=== PATIENT | female | born 1960 | race Caucasian/White ===

== ENCOUNTER → 2019-07-05 00:01 | Outpatient (RCR) | payer MEDICARE, SELFPAY | LOC: ONCMTN 06-07 05:49 → ONCRAD 06-08 06:04 | PROVIDERS: Family Provider Nurse Practitioner; Visit Provider Specialist | DX: Z51.0 Encounter for antineoplastic radiation therapy (principal); C50.411 Malignant neoplasm of upper-outer quadrant of right female breast; J45.909 Unspecified asthma, uncomplicated; Z79.51 Long term (current) use of inhaled steroids; Z79.82 Long term (current) use of aspirin | CPT/HCPCS: 77280 ×2; 77295; 77300; 77307; 77334 ×2; 77336 ×3; 77387 ×18; 77412 ×18 ==

== ENCOUNTER 2019-07-19 05:38 | Outpatient (RCR) | payer MEDICARE, SELFPAY ==
[2019-07-19 12:48] LABS: Basophils % 0.4 %; Eosinophils # 0.1 10^3/uL (0.0-0.8); Eosinophils % 0.9 %; Hematocrit 37.2 % (37.0-47.0); Hemoglobin 12.4 g/dL (11.5-15.3); Lymphocytes # 1.4 10^3/uL (0.8-4.8); Lymphocytes % 20.5 %; Mean Corpuscular HGB Conc 33.3 g/dL (30.0-36.0); Mean Corpuscular Volume 87.1 fL (81-99); Mean Platelet Volume 9.5 fL (7.4-10.4); Monocytes # 0.6 10^3/uL (0.2-0.9); Monocytes % 8.9 %; Neutrophils # 4.7 10^3/uL (1.8-7.7); Nucleated Red Blood Cells % 0 %; Platelet Count 220 10^3/cmm (130-400); Red Blood Count 4.27 10^6/uL (4.1-5.3); Red Cell Distribution Width 13.3 % (12.1-15.1); White Blood Count 6.7 10^3/uL (4.0-10.0)
[2019-07-19 13:04] LABS: Alanine Aminotransferase 21 U/L (0-33); Albumin Level 4.5 g/dL (3.5-5.2); Alkaline Phosphatase 114 IU/L (35-105); Anion Gap 22.5 (5-19); Aspartate Amino Transferase 19 U/L (0-32); Blood Urea Nitrogen 24 mg/dL (8-23); Calcium 9.8 mg/Dl (8.8-10.2); Carbon Dioxide 21 mmol/L (22-29); Chloride 98 mmol/L (98-107); Globulin 2.2 g/dL (1.3-4.6); Glomerular Filtration Rate 50.5 mL/min (90-130); Glucose 226 mg/dL (74-106); Potassium 4.5 mmol/L (3.5-5.1); Sodium 137 mmol/L (136-145); Total Bilirubin 0.2 mg/dL (0.15-1.2); Total Protein 6.7 g/dL (6.6-8.7)
--- NOTE | 2019-07-19 14:40 | ONC FU_ITS ---
Dr. Farias follow up note Patient: Harleen Pierre < Unit #: [id number]: 1960 Dicatated By: Adal Farias M.D.Date of Visit:Jul 19, 2019 Onc Med Follow-up/Prog Note History of Present Illness: Mrs. Harleen Pierre, is a 59-year-old female found to have right breast abnormality in her routine follow-up mammogram done on 02/16/2019 which showed 10 mm asymmetric density in the right upper quadrant of for right breast , subsequently on 03/29/2019 underwent ultrasound-guided right breast biopsy and it confirmed. Infiltrating ductal carcinoma ER 89% positive MN 90% positive HER-2/wisam negative Ki-67 6% favorable.Underwent right breast lumpectomy with sentinel lymph node dissection on 04/27/2019, final pathology report showed 1.1 cm invasive tumor, grade 2, with a clear margin pT1c and 0 out of 2 sentinel lymph node showed metastatic disease pN0. Oncotype DX reported on 05/16/2019 e.g. low recurrence score at 7, means absolute chemotherapy benefit is less than 1% and risk of distant recurrence at 9 years with aromatase inhibitor is about 3%. Patient was started on Arimidex 1 mg by mouth daily along with vitamin D/calcium supplement on 05/20/2019 Patient took it for few days but because of headaches and generalized muscular skeleton pain although patient has history of arthritis, patient decided to stop her Arimidex and on 07/16/2018 she was started on Aromasin 25 mg by mouth daily Comleted postlumpectomy radiation therapy on 07/01/2019 Patient denies any nipple discharge or retraction patient denies any right axillary lymphadenopathy patient denies any overlying skin changes. Patient denies any bony pains. Patient denies any weight loss next Family history positive for maternal aunt diagnosed with breast cancer at age 70 Came for follow-up, denies any specific complaints, generalized muscular skeleton pain is much better since off Arimidex still have off-and-on headaches which is a chronic problem. No fever or chills, no diarrhea constipation no blurred vision or double vision, no new bony pains. Patient has initial chronic arthritis. Medications: Advair Diskus 1 puff(s) (of 250-50 mcg/dose) Aerosol Powder, Breath Activated Inhalation daily PRN, Aspirin 1 Tablet (of 81 mg) Oral daily, Ciprofloxacin HCl 1 Tablet (of 500 mg) Oral b.i.d. for 3 days, Gabapentin 1 Capsule (of 300 mg) Oral b.i.d., Glimepiride 1 Tablet (of 2 mg) Oral daily, hydroCHLOROthiazide 1 Tablet (of 12.5 mg) Oral daily, Lisinopril 1 Tablet (of 40 mg) Oral daily, metFORMIN HCl 1 Tablet (of 1000 mg) Oral b.i.d., metroNIDAZOLE 1 Tablet (of 500 mg) Oral t.i.d., Omeprazole 1 Capsule (of 40 mg) Tablet, enteric coated Oral daily, Ondansetron HCl 1 Tablet (of 4 mg) Oral daily PRN, predniSONE 1 Tablet (of 20 mg) Oral daily, Ventolin HFA 1 puff(s) (of 108 (90 base) mcg/act) Aerosol, solution Inhalation PRN Allergies: CeleBREX, Ibuprofen, latex, and Vicodin. Review of Systems: Constitutional - Appetite is good and weight is stable. No fever, chills, hot flashes, or night sweats. Energy level is fair, ENMT - No sinus congestion/drainage. No mouth sores. No sore throat, positive for difficulty swallowing, Hematologic/Lymphatic - No abnormal bruising or bleeding, Respiratory - Occasional shortness of breath and cough. No pleuritic pain or hemoptysis, Cardiovascular - Slight angina pain and palpitations, Gastrointestinal - No nausea or vomiting. No heartburn. Positive for acid reflux. No diarrhea or constipation. No blood in the stool or black stools, Genitourinary (F) - No dysuria or hematuria. No urinary frequency. No urgency or incontinence, Musculoskeletal - Positive for arthritis, Neurologic - No headache or dizziness. Pt reports neuropathy in her feet, Psychiatric - Positive for anxiety, depression and insomnia. Vital Signs: Vitals are not available for this patient. Performance Status: 0 - Fully active, able to carry on all predisease activities without restrictions. (ECOG) Physical Examination: Respiratory - Lungs are clear to auscultation without rhonchi or wheezing, Cardiovascular - Regular rate and rhythm of heart, Extremities - no edema. Lab/Imaging: Test performed on Jul 19, 2019 12:33 Glucose 226 mg/dL BUN 24 mg/dL Creatinine 1.1 mg/dL Cr Clearance (Est) 68.99 mL/min Sodium 137 mmol/L Potassium 4.5 mmol/L Chloride 98 mmol/L CO2 21 mmol/L Calcium 9.8 mg/dL Protein, Total 6.7 g/dL Albumin 4.5 g/dL Globulin 2.2 g/dL Bilirubin, Total 0.2 mg/dL Alkaline Phosphatase 114 IU/L AST (SGOT) 19 IU/L ALT (SGPT) 21 IU/L WBC 6.7 10^9/L RBC 4.27 10^12/L HGB 12.4 g/dL HCT 37.2 % MCV 87.1 fl MCH 29.0 pg MCHC 33.3 g/dL RDW 13.3 % Platelet Count 220 10^9/L MPV 9.5 fL Neutrophils (Gran) 4.7 10^9/L Lymphocytes 1.4 10^9/L Monocytes 0.6 10^9/L Eosinophils 0.1 10^9/L Basophils 0.0 10^9/L Manual Lymphocytes 20.5 % Manual Monocytes 8.9 % Manual Eosinophils 0.9 % Manual Basophils 0.4 % NRBCs 0.0 /100 WBC Test performed on May 20, 2019 09:15 Anion Gap 18.4 eGFR 85.1 mL/min Neutrophil % 62.4 % Lymphocyte % 25.5 % Monocyte % 10.3 % Eosinophil % 0.6 % Basophils % 0.6 % Impression: Status post right lumpectomy with sentinel lymph node dissection done on 04/27/2019 Final pathology report showed 1.1 cm, grade 2, invasive tumor with clear margins pT1c, 0 out of 2 sentinel lymph node positive for metastatic disease pN0 Oncotype DX score low at 7, started on Arimidex 1 mg by mouth daily along with vitamin D/calcium supplement for 5 years on 05/20/2019 Patient discontinued Arimidex because of related side effects especially increase in muscle skeleton discomfort and on 07/16/2019, she was started on Aromasin 25 mg by mouth daily Completed postlumpectomy radiation therapy on 07/01/2019 Infiltrating ductal carcinoma of right breast per ultrasound-guided biopsy done on 03/29/2019 which showed ER 89%, MN 90%, HER-2/wisam negative, Ki-67 6% (favorable) Mammogram done on 02/16/2090 showed 10 mm asymmetric density upper outer right breast As per patient colonoscopy done in September 2018 showed no abnormality Plan: Discussed with patient regarding her labs white blood count 6.7 hemoglobin 12.4 crit 37.2 platelets 220,000 CMP within normal limit except glucose 226 Clinically, patient is doing well, muscular skeleton pain/discomfort is improving since off Arimidex., Now we will start her on Aromasin 25 mg by mouth daily all the side effect possible benefits associated with Aromasin were discussed patient expressed full understanding. We'll give her prescription for one month and then she will return to clinic in month if tolerated then will continue otherwise may try Femara. Signed By: Adal Farias M.D. <<Signature on File>>
== END 2019-08-05 23:59 | disposition home or self-care (01) ==
LOC: ONCRAD 05:38
PROVIDERS: Visit Provider Internal Medicine Hematology & Oncology
DX: Z51.0 Encounter for antineoplastic radiation therapy (principal); C50.411 Malignant neoplasm of upper-outer quadrant of right female breast; Z17.0 Estrogen receptor positive status [ER+]; G62.9 Polyneuropathy, unspecified; M19.90 Unspecified osteoarthritis, unspecified site; F41.8 Other specified anxiety disorders; G47.00 Insomnia, unspecified; Z79.811 Long term (current) use of aromatase inhibitors; Z79.51 Long term (current) use of inhaled steroids; Z79.82 Long term (current) use of aspirin; Z80.3 Family history of malignant neoplasm of breast
CPT/HCPCS: 36415; 77336; 77387; 77412; 80053; 85025; 99214; G6002

== ENCOUNTER 2019-08-30 13:34 | Outpatient (CLI) | payer MEDICARE, SELFPAY ==
--- NOTE | 2019-08-30 13:44 | CT_ITS ---
WS: [id number] CT PELVIS WITH HISTORY: LEIOMYOMA OF UTERUS, LOWER ABDOMINAL PAIN TECHNIQUE: Contiguous imaging is performed of the pelvis without contrast. Coronal and sagittal refor mats are reviewed. All CT scans at [facility] use at least one of these dose optimization techniques: automated exposure control; mA and/or kV adjustment per patient size (includes targeted exams where dose is matched to clinical indication); or iterative reconstruction. DLP: 802.38 mGycm COMPARISON: None available. Visualized inferior RIGHT lobe of the liver demonstrates hepatic steatosis. Incompletely visualized c yst in the lower pole of the RIGHT kidney measures 1.3 cm. No adrenal mass. Mild atherosclerosis aort a. A few diverticula in the sigmoid colon. No free fluid or adenopathy. Urinary bladder is not distended. The uterus is anteverted and slightly to the LEFT. Mild heterogenei ty of the myometrium. No discrete fibroids are identified but that is not unexpected by CT evaluation . Atrophic ovaries are identified. Degenerative disc disease with vacuum disc phenomenon at L4-5. CT/CT pelvis w con* [id number] IMPRESSION: 1. No acute abnormality in the pelvis. 2. Uterus is slightly enlarged but no discrete fibroids are identified. For ev aluation of fibroids transvaginal ultrasound can be obtained. 3. No adenopathy or free fluid.
[2019-08-30] MEDS: iohexol 300 mg/mL 50 mL Btl PO (15:02)
[2019-08-30] MEDS: iodixanol 320 mg/mL 100mL Btl IV (15:17)
== END 2019-08-30 13:35 | disposition home or self-care (01) ==
LOC: RADWPI 13:41
PROVIDERS: Family Provider Nurse Practitioner; PCP Nurse Practitioner; Visit Provider Physician Assistant Medical
DX: D25.9 Leiomyoma of uterus, unspecified (principal); R10.30 Lower abdominal pain, unspecified
CPT/HCPCS: 72193; Q9967

== ENCOUNTER 2019-09-01 05:56 | Outpatient (RCR) | payer MEDICARE, MEDICAID, SELFPAY ==
--- NOTE | 2019-09-01 09:34 | ONC FU_ITS ---
Dr. Farias follow up note Patient: Harleen Pierre < Unit #: [id number]: 1960 Dicatated By: Adal Farias M.D.Date of Visit:Sep 01, 2019 Onc Med Follow-up/Prog Note History of Present Illness: Mrs. Harleen Pierre, is a 59-year-old female found to have right breast abnormality in her routine follow-up mammogram done on 02/16/2019 which showed 10 mm asymmetric density in the right upper quadrant of for right breast , subsequently on 03/29/2019 underwent ultrasound-guided right breast biopsy and it confirmed. Infiltrating ductal carcinoma ER 89% positive ND 90% positive HER-2/wisam negative Ki-67 6% favorable.Underwent right breast lumpectomy with sentinel lymph node dissection on 04/27/2019, final pathology report showed 1.1 cm invasive tumor, grade 2, with a clear margin pT1c and 0 out of 2 sentinel lymph node showed metastatic disease pN0. Oncotype DX reported on 05/16/2019 e.g. low recurrence score at 7, means absolute chemotherapy benefit is less than 1% and risk of distant recurrence at 9 years with aromatase inhibitor is about 3%. Patient was started on Arimidex 1 mg by mouth daily along with vitamin D/calcium supplement on 05/20/2019 Patient took it for few days but because of headaches and generalized muscular skeleton pain although patient has history of arthritis, patient decided to stop her Arimidex and on 07/16/2018 she was started on Aromasin 25 mg by mouth daily Comleted postlumpectomy radiation therapy on 07/01/2019 Patient denies any nipple discharge or retraction patient denies any right axillary lymphadenopathy patient denies any overlying skin changes. Patient denies any bony pains. Patient denies any weight loss next Family history positive for maternal aunt diagnosed with breast cancer at age 70 Came for follow-up, denies any specific complaints today no more worsening of muscular skeleton discomfort she has due to arthritis, tolerating Aromasin well Medications: Advair Diskus 1 puff(s) (of 250-50 mcg/dose) Aerosol Powder, Breath Activated Inhalation daily PRN, Aspirin 1 Tablet (of 81 mg) Oral daily, Gabapentin 1 Capsule (of 300 mg) Oral b.i.d., Glimepiride 1 Tablet (of 2 mg) Oral daily, hydroCHLOROthiazide 1 Tablet (of 12.5 mg) Oral daily, Lisinopril 1 Tablet (of 40 mg) Oral daily, metFORMIN HCl 1 Tablet (of 1000 mg) Oral b.i.d., Omeprazole 1 Capsule (of 40 mg) Tablet, enteric coated Oral daily, Ventolin HFA 1 puff(s) (of 108 (90 base) mcg/act) Aerosol, solution Inhalation PRN Allergies: CeleBREX, Ibuprofen, latex, and Vicodin. Review of Systems: Constitutional - Appetite is good and weight is stable. No fever, chills, hot flashes, or night sweats. Energy level is fair, ENMT - No sinus congestion/drainage. No mouth sores. No sore throat, positive for difficulty swallowing, Hematologic/Lymphatic - No abnormal bruising or bleeding, Respiratory - Occasional shortness of breath and cough. No pleuritic pain or hemoptysis, Cardiovascular - Slight angina pain and palpitations, Gastrointestinal - No nausea or vomiting. No heartburn. Positive for acid reflux. No diarrhea or constipation. No blood in the stool or black stools, Genitourinary (F) - No dysuria or hematuria. No urinary frequency. No urgency or incontinence, Musculoskeletal - Positive for arthritis, Neurologic - No headache or dizziness. Pt reports neuropathy in her feet, Psychiatric - Positive for anxiety, depression and insomnia. Vital Signs: Performed on Sep 01, 2019 09:19 Height - 66.00 in Weight - 180.6 lbs Temperature - 97.4 F Pulse - 86 Respiration - 20 BP - 126/77 mm(hg) O2 Sat - 97 % Pain - 0 Performed on Sep 01, 2019 09:19 BMI - 29.15 kg/m2 (HIGH) Performed on Sep 01, 2019 08:46 Height - 66.00 in Weight - 180.6 lbs (HIGH) BSA - 1.92 sq.m BMI - 29.15 Temperature - 97.4 F (LOW) Pulse - 86 /min Respiration - 20 /min BP - 126/77 mm(hg) O2 Sat - 97 % Pain - 0 Performance Status: 0 - Fully active, able to carry on all predisease activities without restrictions. (ECOG) Physical Examination: Respiratory - Lungs are clear to auscultation without rhonchi or wheezing, Cardiovascular - Regular rate and rhythm of heart, Extremities - no edema. Lab/Imaging: Test performed on Jul 19, 2019 12:33 Glucose 226 mg/dL BUN 24 mg/dL Creatinine 1.1 mg/dL Cr Clearance (Est) 68.99 mL/min Sodium 137 mmol/L Potassium 4.5 mmol/L Chloride 98 mmol/L CO2 21 mmol/L Calcium 9.8 mg/dL Protein, Total 6.7 g/dL Albumin 4.5 g/dL Globulin 2.2 g/dL Bilirubin, Total 0.2 mg/dL Alkaline Phosphatase 114 IU/L AST (SGOT) 19 IU/L ALT (SGPT) 21 IU/L WBC 6.7 10 3/uL RBC 4.27 10^12/L HGB 12.4 g/dL HCT 37.2 % MCV 87.1 fL MCH 29.0 pg MCHC 33.3 g/dL Platelet Count 220 10^9/L RDW 13.3 % MPV 9.5 fL Lymphocytes 1.4 10^9/L Neutrophils 0.0 10 3/uL Monocytes 0.6 10^9/L Eosinophils 0.1 10^9/L Basophils 0.0 10^9/L Neutrophil % 0.9 % Manual Lymphocytes 20.5 % Manual Monocytes 8.9 % Manual Eosinophils 0.9 % Manual Basophils 0.4 % NRBCs 0.0 /100 WBC Test performed on May 20, 2019 09:15 Anion Gap 18.4 eGFR 85.1 mL/min Lymphocyte % 25.5 % Monocyte % 10.3 % Eosinophil % 0.6 % Basophils % 0.6 % Impression: Status post right lumpectomy with sentinel lymph node dissection done on 04/27/2019 Final pathology report showed 1.1 cm, grade 2, invasive tumor with clear margins pT1c, 0 out of 2 sentinel lymph node positive for metastatic disease pN0 Oncotype DX score low at 7, started on Arimidex 1 mg by mouth daily along with vitamin D/calcium supplement for 5 years on 05/20/2019 Patient discontinued Arimidex because of related side effects especially increase in muscle skeleton discomfort and on 07/16/2019, she was started on Aromasin 25 mg by mouth daily Completed postlumpectomy radiation therapy on 07/01/2019 Infiltrating ductal carcinoma of right breast per ultrasound-guided biopsy done on 03/29/2019 which showed ER 89%, ND 90%, HER-2/wisam negative, Ki-67 6% (favorable) Mammogram done on 02/16/2090 showed 10 mm asymmetric density upper outer right breast As per patient colonoscopy done in September 2018 showed no abnormality Plan: Discussed with patient regarding her questions or concern, now on Aromasin, tolerating well except occasionally hot flashes but no worsening of muscle skeleton discomfort due to arthritis. So we'll continue with same and she was given prescription for Aromasin 25 mg by mouth daily along with vitamin D and calcium supplement and return to clinic in 3 months with CBC CMP. Signed By: Adal Farias M.D. <<Signature on File>>
--- NOTE | 2019-09-01 09:41 | ONCRAD EPV_ITS ---
Radiation Oncology Established Patient Visit Patient: Jose MR#: [id number] : 1960> Age: 59> Sex: Female> Dictated by: Dr. Nitish Watson Date of Service: 09/01/2019 Referring Physician(s): Edy Lorenzana MD Diagnosis: Z17.0 - Estrogen receptor positive status [ER+], Diagnosed 07/19/2019 (Active) C50.411 - Malignant neoplasm of upper-outer quadrant of right female breast, Diagnosed 04/20/2019 (Active) Chief Complaint / History of Present Illness: This is a 59-year-old female with pT1b, pN0, M0 invasive ductal carcinoma involving the right breast status post right breast lumpectomy and sentinel lymph nodes dissection. Surgical margins are widely negative. Subsequently, she received adjuvant right whole breast irradiation to 42.5 Gy in 16 fractions followed by a boost of 10 Gy in 5 fractions to the tumor bed. The patient has recovered from radiation well. She notes occasional right breast pain but denies skin irritation or erythema. The skin reaction has resolved essentially. Current Medications: Advair Diskus, aspirin, exemestane, gabapentin, glimepiride, hydroCHLOROthiazide, lisinopril, metFORMIN HCl, omeprazole, ventolin HFA. Allergies: CeleBREX, Ibuprofen, latex and Vicodin. Current Complaints / Review of Systems: Constitutional - Complains of moderate fatigue. Complains of night sweats which occur occasionally. Denies lack of appetite and fever. Eyes - Denies blurred vision. ENMT - Complains of ear pain on the right side. Denies dysphagia, mouth dryness, stomatitis and altered taste. Neck - Denies neck pain. Integumentary - Denies rash. Breasts - Complains of pain in the right breast which is a sharp shooting pain and it comes and goes. Cardiovascular - Denies arrhythmias and chest pain. Respiratory - Complains of dyspnea with excertion and wheezing occasionally. Denies cough. Gastrointestinal - Complains of abdominal pain that is intermittent located in left lower quadrant. Complains of occasional diarrhea. Complains of heartburn / dyspepsia. Denies constipation, melena / GI bleeding, nausea and vomiting. Genitourinary (F) - Complains of nocturia more than 4 times/night. Denies dysuria, frequency, urgency, vaginal discharge / bleeding and vaginal spotting. Musculoskeletal - Complains of arthritis and joint pain. Denies bone pain. Neurologic - Denies dizziness, abnormal gait and headaches. Endocrine - Complains of Type 2 diabetes. Denies thyroid disease. Hematologic/Lymphatic - Denies tender or enlarged lymph nodes. Vital Signs: Performed on 09/01/2019 8:46 AM Height - 66.00 in, Weight - 180.6 lbs (high), BSA - 1.92 sq.m, BMI - 29.15, Temperature - 97.4 f (low), Pulse - 86 /min, Respiration - 20 /min, O2 Sat - 97 %, Pain - 0 and BP - 126/ 77 mm(hg). Physical Exam: General: Alert and oriented x 3. No acute distress. HEENT: Normocephalic, atraumatic. Extraocular Movements Intact: Pupils Equal, Round, Reactive to Light and Accommodation: Sclerae anicteric. Oral cavity is clear without lesions, masses or ulcers. NECK: Supple without supraclavicular or jugular lymphadenopathy. LUNGS: Clear to auscultation bilaterally without rales, rhonchi or wheeze. HEART: Regular rate and rhythm, normal S1 and S2 without murmur, gallop or rub. BREASTS: There is no mass/nodule palpated of the right breast. No skin change, nipple discharge or retraction. The surgical incision has healed up well with no signs of bleeding or infection. No enlarged lymph nodes in the axilla. Exam of the contralateral breast is unremarkable. MUSCULOSKELETAL: No tenderness or percussion pain over the axial skeleton, scapulae or pelvis. ABDOMEN: Soft, nontender, nondistended without masses or organomegaly. Bowel sounds are present. EXTREMITIES: No peripheral edema is identified. Limited motor and sensory examination are grossly intact and symmetric bilaterally. NEUROLOGIC: Cranial nerves II ???XII are grossly intact. Normal sensation, strength 5/5 in all extremities, normal gait, no ataxia. Performance Status: 0 - Fully active, able to carry on all predisease activities without restrictions. (ECOG) Lab: Test performed on 07/19/2019 12:33 PM Cr Clearance (Est) - 68.99 ml/min (low). Pathology: invasive ductal carcinoma Imaging: See HPI Impression/plan: The patient has recovered well from RT. She will undergo breast cancer surveillance which includes self-exam of bilateral breasts, axillar and supra/infraclavicular lymphatic regions, annual mammogram and regular followup with her physicians. She will follow up with me on an as needed basis. Signed by: 09/01/2019 9:39:49 AM <<Signature on File>> CPT Code: CPT Code: Signed By: Dr. Nitish Watson, 09/01/2019 9:39:50 AM <<Signature on File>>
== END 2019-09-03 23:59 | disposition home or self-care (01) ==
LOC: ONCMED 05:56
PROVIDERS: Absent Provider Radiology Radiation Oncology; Family Provider Nurse Practitioner; PCP Nurse Practitioner; Visit Provider Internal Medicine Hematology & Oncology
DX: C50.411 Malignant neoplasm of upper-outer quadrant of right female breast (principal); Z17.0 Estrogen receptor positive status [ER+]; Z79.811 Long term (current) use of aromatase inhibitors; Z79.82 Long term (current) use of aspirin; Z92.3 Personal history of irradiation; Z80.3 Family history of malignant neoplasm of breast
CPT/HCPCS: 99214

== ENCOUNTER 2019-11-07 07:55 | Outpatient (CLI) | payer MEDICARE, SELFPAY ==
--- NOTE | 2019-11-07 08:36 | ECG_ITS ---
No Symptoms Reported EXERCISE TREADMILL STRESS ORDERING PHYSICIAN: Unknown CLINICAL INFORMATION: Unknown INTERPRETATION: 1. The patient exercised for 4 minutes and 40 seconds on a Amilcar protocol. He reached a maximum heart rate of 173 beats per minute, which is 108 % of her maximum predicted heart rate. The test was stopped due to achieving the desired heart rate. 2. The baseline electrocardiogram reveals sinus rhythm with nonspecific ST changes but otherwise a normal tracing. 3. With exercise, there was 3 to [address] segment depression in multiple leads very suggestive of ischemia. 4. The resting blood pressure was 136/70. The maximum blood pressure was 241/93. 5. At maximum exercise, the patient achieved 7 METs with a rate pressure product of 415. 6. The patient experienced no chest pain during the examination. Occasional multiform PVCs developed during recovery. CONCLUSION: 1. Exercise treadmill test very suggestive of ischemia. 2. Below average exercise capacity for age. 3. Hypertensive blood pressure response to exercise. 4. If ischemia is suspected, I would recommend a treadmill sestamibi or Lexiscan sestamibi for better risk stratification. Electronically Signed On 11-08-2019 16:12:06 CDT by Manjinder Zambrano M.D. [email or web address]
[2019-11-07 08:40] VITALS: BMI 28.2
[2019-11-07 10:34] VITALS: BP 145/70; PULSE 97
== END 2019-11-07 07:56 | disposition home or self-care (01) ==
LOC: CDL 08:00
PROVIDERS: Family Provider Nurse Practitioner; PCP Nurse Practitioner; Visit Provider Nurse Practitioner
DX: R07.9 Chest pain, unspecified (principal)
CPT/HCPCS: 93017

== ENCOUNTER 2020-02-09 07:53 | Outpatient (CLI) | payer MEDICARE, SELFPAY ==
[2020-02-09 08:24] LABS: Basophils % 0.6 %; Eosinophils # 0.1 10^3/uL (0.0-0.8); Eosinophils % 1.6 %; Hematocrit 39.8 % (37.0-47.0); Hemoglobin 12.7 g/dL (11.5-15.3); Lymphocytes # 1.1 10^3/uL (0.8-4.8); Mean Corpuscular HGB Conc 31.9 g/dL (30.0-36.0); Mean Corpuscular Hemoglobin 30.6 pg (28.0-34.0); Mean Corpuscular Volume 95.9 fL (81-99); Monocytes # 0.3 10^3/uL (0.2-0.9); Monocytes % 6.5 %; Neutrophils # 3.32 10^3/uL (1.8-7.7); Neutrophils % 67.5 %; Nucleated Red Blood Cells % 0 %; Platelet Count 220 10^3/cmm (130-400); Red Blood Count 4.15 10^6/uL (4.1-5.3); Red Cell Distribution Width 12.7 % (12.1-15.1); White Blood Count 4.9 10^3/uL (4.0-10.0)
[2020-02-09 08:42] LABS: Alanine Aminotransferase 23 U/L (0-33); Albumin Level 4.1 g/dL (3.5-5.2); Alkaline Phosphatase 107 IU/L (35-105); Aspartate Amino Transferase 16 U/L (0-32); Blood Urea Nitrogen 12 mg/dL (8-23); Calcium 8.5 mg/dL (8.5-10.5); Carbon Dioxide 22 mmol/L (22-29); Chloride 106 mmol/L (98-107); Glomerular Filtration Rate 72.7 mL/min (90-130); Glucose 201 mg/dL (65-115); Osmolality Calculated 290 mOsm/kg (285-295); Sodium 139 mmol/L (136-145); Total Bilirubin 0.4 mg/dL (0.15-1.2); Total Protein 7.1 g/dL (6.6-8.7)
--- NOTE | 2020-02-09 11:13 | ONC FU_ITS ---
Dr. Farias follow up note Patient: Harleen Pierre Unit #: [id number]: 1960 Dicatated By: Adal Farias M.D.Date of Visit:Feb 09, 2020 Onc Med Follow-up/Prog Note History of Present Illness: Mrs. Harleen Pierre, is a 60-year-old female found to have right breast abnormality in her routine follow-up mammogram done on 02/16/2019 which showed 10 mm asymmetric density in the right upper quadrant of for right breast , subsequently on 03/29/2019 underwent ultrasound-guided right breast biopsy and it confirmed. Infiltrating ductal carcinoma ER 89% positive MN 90% positive HER-2/wisam negative Ki-67 6% favorable.Underwent right breast lumpectomy with sentinel lymph node dissection on 04/27/2019, final pathology report showed 1.1 cm invasive tumor, grade 2, with a clear margin pT1c and 0 out of 2 sentinel lymph node showed metastatic disease pN0. Oncotype DX reported on 05/16/2019 e.g. low recurrence score at 7, means absolute chemotherapy benefit is less than 1% and risk of distant recurrence at 9 years with aromatase inhibitor is about 3%. Patient was started on Arimidex 1 mg by mouth daily along with vitamin D/calcium supplement on 05/20/2019 Patient took it for few days but because of headaches and generalized muscular skeleton pain although patient has history of arthritis, patient decided to stop her Arimidex and on 07/16/2018 she was started on Aromasin 25 mg by mouth daily Comleted postlumpectomy radiation therapy on 07/01/2019 Patient denies any nipple discharge or retraction patient denies any right axillary lymphadenopathy patient denies any overlying skin changes. Patient denies any bony pains. Patient denies any weight loss next Family history positive for maternal aunt diagnosed with breast cancer at age 70 Came for follow-up, denies any specific complaints except mild discomfort in her breast but no mass palpable no nipple discharge no overlying skin changes. 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 Other than that no new musculoskeletal pain occasionally hot flashes no fever chills no nausea or vomiting no diarrhea constipation tolerating Aromasin well Medications: Advair Diskus 1 puff(s) (of 250-50 mcg/dose) Aerosol Powder, Breath Activated Inhalation daily PRN, Aspirin 1 Tablet (of 81 mg) Oral daily, Gabapentin 1 Capsule (of 300 mg) Oral b.i.d., Glimepiride 1 Tablet (of 2 mg) Oral daily, hydroCHLOROthiazide 1 Tablet (of 12.5 mg) Oral daily, Lisinopril 1 Tablet (of 40 mg) Oral daily, metFORMIN HCl 1 Tablet (of 1000 mg) Oral b.i.d., Omeprazole 1 Capsule (of 40 mg) Tablet, enteric coated Oral daily, Ventolin HFA 1 puff(s) (of 108 (90 base) mcg/act) Aerosol, solution Inhalation PRN Allergies: CeleBREX, Ibuprofen, latex, and Vicodin. Review of Systems: Review of Systems is not available for this patient. Vital Signs: Performed on Feb 09, 2020 10:37 Height - 66.00 in Weight - 180.4 lbs (LOW) BSA - 1.91 sq.m BMI - 29.12 Temperature - 97.7 F (LOW) Pulse - 71 /min Respiration - 18 /min BP - 177/84 mm(hg) (HIGH) O2 Sat - 98 % Pain - 0 Performance Status: 0 - Fully active, able to carry on all predisease activities without restrictions. (ECOG) Physical Examination: Respiratory - Lungs are clear, Cardiovascular - Regular rate and rhythm of heart, Gastrointestinal - Soft, bowel sounds present, Extremities - No visible edema or rash. Lab/Imaging: Most recent lab results are not available for this patient. Impression: Status post right lumpectomy with sentinel lymph node dissection done on 04/27/2019 Final pathology report showed 1.1 cm, grade 2, invasive tumor with clear margins pT1c, 0 out of 2 sentinel lymph node positive for metastatic disease pN0 Oncotype DX score low at 7, started on Arimidex 1 mg by mouth daily along with vitamin D/calcium supplement for 5 years on 05/20/2019 Patient discontinued Arimidex because of related side effects especially increase in muscle skeleton discomfort and on 07/16/2019, she was started on Aromasin 25 mg by mouth daily Completed postlumpectomy radiation therapy on 07/01/2019 Infiltrating ductal carcinoma of right breast per ultrasound-guided biopsy done on 03/29/2019 which showed ER 89%, MN 90%, HER-2/wisam negative, Ki-67 6% (favorable) Mammogram done on 02/16/2090 showed 10 mm asymmetric density upper outer right breast As per patient colonoscopy done in September 2018 showed no abnormality Plan: Discussed with patient regarding her labs white blood count 4.9 hemoglobin 12.7 hematocrit 39.8 platelets 220 CMP within normal range Clinically, patient is doing well, with no signs symptom suggestive of recurrence of disease, tolerating Aromasin well but with expected side effects e.g. occasional hot flashes. Mild anemia, now resolved, and mild renal insufficiency is improved too. We will continue with same and then she will return to clinic in 4 months with CBC CMP and mammogram and also obtain uterine biopsy reports and review. Signed By: Adal Farias M.D. <<Signature on File>>
== END 2020-02-09 07:54 | disposition home or self-care (01) ==
PROVIDERS: Visit Provider Internal Medicine Hematology & Oncology
DX: C50.411 Malignant neoplasm of upper-outer quadrant of right female breast (principal); Z17.0 Estrogen receptor positive status [ER+]; Z79.818 Long term (current) use of other agents affecting estrogen receptors and estrogen levels
CPT/HCPCS: 36415; 80053; 85025; 99214

== ENCOUNTER 2020-02-15 07:31 | Outpatient (CLI) | payer MEDICARE, MEDICAID, SELFPAY ==
--- NOTE | 2020-02-15 08:17 | ECG_ITS ---
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 Interpretive Statements NAME OF STUDY: EXERCISE SESTAMIBI STRESS TEST INDICATION: Chest Pain, PROCEDURE: The baseline electrocardiogram showed normal sinus rhythm with normal ST-Ts. At the baseline, the patient's blood pressure was 163/95 mm Hg with a heart rate of 93. The patient exercised for 4 minutes and 17 seconds on a standard Amilcar protocol. Patient attained a maximum heart rate of 152 beats per minute(96 % of the maximum predicted heart rate) with a blood pressure at the peak exercise of 243/85 mm Hg. The EKG at the peak exercise revealed 1-1.[address] depressions in leads II, 3, aVF, V4 to V6.. Patient did not have any chest pain or any significant arrhythmis with the exercise Sestamibi was injected 1 minute prior to the peak exercise During the recovery phase, there were no new changes. Blood pressure at the end of the recovery phase was 161/97 mm Hg with a heart rate of 92 per minute. CONCLUSION: 1. Abnormal EKG response to treadmill exercise suggestive of inferolateral wall ischemia 2. No exercise-induced chest pain or cardiac arrhythmia. Hypertensive response to exercise 3. Impaired exercise tolerance, attained a maximum of 7.2 METs 4. Sestamibi/Sestamibi perfusion results pending; see separate report. Electronically Signed On 02-21-2020 9:46:02 CDT by Paul Stacy M.D. [id number]
--- NOTE | 2020-02-15 08:17 | NMCV_ITS ---
NM jarred perf SPECT r/s* [id number] [facility] Age: 60 Gender: F : 1960 Exam Date: 02/15/2020 08:17 Ordering Phys: Paul Stacy MD ([email or web address]) Technologist: LILY Bello Exam Location: [facility] Indications: CHEST PAIN STRESS TEST Please see separate stress test report in [facility] for full findings IMAGE PROTOCOL Rest/Stress 1 Exercise Day Radiopharmaceutical Dose (mCi) Administration Site Administered by Rest: Tc-99m 10.7 IV LILY Bello Sestamibi Stress:Tc-99m 32.8 IV LILY Cueva Sestamibi Rest: 15-Feb-2020 60 Discovery 630 Stress: 15-Feb-2020 30 Discovery 630 Radiopharmaceutical was injected at 88 % maximum heart rate. Images obtained in supine and prone position. SPECT RESULTS Technical Quality: Excellent Raw Data Analysis: Normal Image Corrections: No attenuation or motion correction applied Summed Stress Score: 0 Summed Rest Score: 8 Summed Difference Score: 0 PERFUSION FINDINGS Fairly uniform myocardial tracer uptake with no significant perfusion abnormalities. FUNCTIONAL RESULTS (calculated via Gated SPECT) Stress Image LV EF (%): 65 Stress EDV (mL):94 TID: 1.04 Stress ESV (mL):33 FUNCTIONAL FINDINGS: Segmental wall motion analysis revealing no gross wall motion abnormalities. IMPRESSIONS 1. Unremarkable myocardial perfusion imaging. 2. Normal LV ejection fraction of 65%. 3. LV wall motion analysis revealing no gross wall motion abnormalities. 4. Normal LV volume. No significant coronary ischemia, based on the above findings Dr Paul Stacy MD FAC (Electronically Signed) Final Date: 15 February 2020 17:19 S
[2020-02-15 08:18] VITALS: BMI 29.9
== END 2020-02-15 07:32 | disposition home or self-care (01) ==
LOC: RAD 07:34
PROVIDERS: Visit Provider Internal Medicine Cardiovascular Disease
DX: R07.9 Chest pain, unspecified (principal); R06.02 Shortness of breath; R94.31 Abnormal electrocardiogram [ECG] [EKG]
CPT/HCPCS: 78452; 93017; A9500

== ENCOUNTER 2020-02-16 13:24 | Outpatient (CLI) | payer MEDICARE, SELFPAY ==
--- NOTE | 2020-02-16 13:32 | MM_ITS ---
WS: [id number] BILATERAL DIGITAL DIAGNOSTIC MAMMOGRAM MAMMOGRAPHY WITH CAD CLINICAL INFORMATION: HX OF BREAST CA COMPARISON: January 10, 2019 TECHNIQUE: Bilateral CC, MLO, and ML views. FINDINGS: The breasts are composed of heterogeneous fibroglandular density, which can limit the detection of sm all underlying mass lesions. Postoperative lumpectomy changes upper outer right breast posterior dept h. Surgical clips. Parenchymal fibrosis with postoperative changes. Skin thickening right breast cons istent with treatment-related changes. No suspicious focal mass, asymmetry, calcifications, or architectural distortion. No evidence of rupa gnancy. MM/[place] [id number] IMPRESSION: BI-RADS: 2-Benign FOLLOW UP: 1 Year Follow-up Recommend return to annual diagnostic mammography.
== END 2020-02-16 13:25 | disposition home or self-care (01) ==
PROVIDERS: Visit Provider Internal Medicine Hematology & Oncology
DX: Z85.3 Personal history of malignant neoplasm of breast (principal)
CPT/HCPCS: 77066

== ENCOUNTER 2020-06-07 10:27 | Outpatient (CLI) | payer MEDICARE, SELFPAY ==
[2020-06-07 10:57] LABS: Basophils % 0.5 %; Eosinophils % 0.7 %; Hematocrit 35.8 % (37.0-47.0); Hemoglobin 11.8 g/dL (11.5-15.3); Lymphocytes # 0.8 10^3/uL (0.8-4.8); Lymphocytes % 14.3 %; Mean Corpuscular Hemoglobin 29.4 pg (28.0-34.0); Mean Corpuscular Volume 89.1 fL (81-99); Mean Platelet Volume 9.3 fL (7.4-10.4); Monocytes # 0.3 10^3/uL (0.2-0.9); Monocytes % 5.1 %; Neutrophils # 4.64 10^3/uL (1.8-7.7); Neutrophils % 78.9 %; Nucleated Red Blood Cells % 0 %; Platelet Count 200 10^3/cmm (130-400); Red Blood Count 4.02 10^6/uL (4.1-5.3); Red Cell Distribution Width 13.1 % (12.1-15.1); White Blood Count 5.9 10^3/uL (4.0-10.0)
[2020-06-07 11:18] LABS: Alanine Aminotransferase 26 U/L (0-33); Albumin Level 4.3 g/dL (3.5-5.2); Alkaline Phosphatase 94 IU/L (35-105); Anion Gap 18.2 (5-19); Aspartate Amino Transferase 19 U/L (0-32); Blood Urea Nitrogen 13 mg/dL (8-23); Calcium 9.8 mg/dL (8.5-10.5); Carbon Dioxide 24 mmol/L (22-29); Chloride 97 mmol/L (98-107); Globulin 2.2 g/dL (1.3-4.6); Glomerular Filtration Rate 72.7 mL/min (90-130); Glucose 369 mg/dL (65-115); Osmolality Calculated 295 mOsm/kg (285-295); Potassium 4.2 mmol/L (3.5-5.1); Sodium 135 mmol/L (136-145); Total Bilirubin 0.2 mg/dL (0.15-1.2); Total Protein 6.5 g/dL (6.6-8.7)
== END 2020-06-07 10:28 | disposition home or self-care (01) ==
LOC: ONCMED 10:31
PROVIDERS: Visit Provider Internal Medicine Hematology & Oncology
DX: C50.411 Malignant neoplasm of upper-outer quadrant of right female breast (principal); Z17.0 Estrogen receptor positive status [ER+]
CPT/HCPCS: 36415; 80053; 85025

== ENCOUNTER 2020-06-11 05:36 | Outpatient (CLI) | payer MEDICARE, MEDICAID, SELFPAY ==
--- NOTE | 2020-06-11 13:26 | ONC FU_ITS ---
Dr. Farias follow up note Patient: Harleen Pierre Unit #: [id number]: 1960 Dicatated By: Adal Farias M.D.Date of Visit:Jun 11, 2020 Onc Med Follow-up/Prog Note History of Present Illness: Mrs. Harleen Pierre, is a 60-year-old female found to have right breast abnormality in her routine follow-up mammogram done on 02/16/2019 which showed 10 mm asymmetric density in the right upper quadrant of for right breast , subsequently on 03/29/2019 underwent ultrasound-guided right breast biopsy and it confirmed. Infiltrating ductal carcinoma ER 89% positive OR 90% positive HER-2/wisam negative Ki-67 6% favorable.Underwent right breast lumpectomy with sentinel lymph node dissection on 04/27/2019, final pathology report showed 1.1 cm invasive tumor, grade 2, with a clear margin pT1c and 0 out of 2 sentinel lymph node showed metastatic disease pN0. Oncotype DX reported on 05/16/2019 e.g. low recurrence score at 7, means absolute chemotherapy benefit is less than 1% and risk of distant recurrence at 9 years with aromatase inhibitor is about 3%. Patient was started on Arimidex 1 mg by mouth daily along with vitamin D/calcium supplement on 05/20/2019 Patient took it for few days but because of headaches and generalized muscular skeleton pain although patient has history of arthritis, patient decided to stop her Arimidex and on 07/16/2018 she was started on Aromasin 25 mg by mouth daily Comleted postlumpectomy radiation therapy on 07/01/2019 Patient denies any nipple discharge or retraction patient denies any right axillary lymphadenopathy patient denies any overlying skin changes. Patient denies any bony pains. Patient denies any weight loss next Family history positive for maternal aunt diagnosed with breast cancer at age 70 Came for follow-up, denies any specific complaints, no fever chills, no nausea or vomiting, no diarrhea or constipation no hot flashes, no unusual musculoskeletal discomfort except patient said she was having left arm pain for which she has seen cardiology Dr. Stacy who did myocardial perfusion SPECT scan on February 15, 2020, as per patient it was normal. Medications: Advair Diskus 1 puff(s) (of 250-50 mcg/dose) Aerosol Powder, Breath Activated Inhalation daily PRN, Aspirin 1 Tablet (of 81 mg) Oral daily, Gabapentin 1 Capsule (of 300 mg) Oral b.i.d., Glimepiride 1 Tablet (of 2 mg) Oral daily, hydroCHLOROthiazide 1 Tablet (of 12.5 mg) Oral daily, Lisinopril 1 Tablet (of 40 mg) Oral daily, metFORMIN HCl 1 Tablet (of 1000 mg) Oral b.i.d., Omeprazole 1 Capsule (of 40 mg) Tablet, enteric coated Oral daily, Ventolin HFA 1 puff(s) (of 108 (90 base) mcg/act) Aerosol, solution Inhalation PRN Allergies: CeleBREX, Ibuprofen, latex, and Vicodin. Review of Systems: Review of Systems is not available for this patient. Vital Signs: Performed on Jun 11, 2020 10:11 Height - 66.00 in Weight - 182.6 lbs (HIGH) BSA - 1.92 sq.m BMI - 29.47 Temperature - 97.7 F (LOW) Pulse - 70 /min Respiration - 16 /min BP - 152/73 mm(hg) (HIGH) O2 Sat - 97 % Pain - 0 Performance Status: 0 - Fully active, able to carry on all predisease activities without restrictions. (ECOG) Physical Examination: Respiratory - Lungs are clear to auscultation, Cardiovascular - Regular rate and rhythm of heart, Gastrointestinal - Soft, bowel sounds present, Extremities - No visible edema or rash. Lab/Imaging: Test performed on Jun 07, 2020 10:37 Sodium 135 mmol/L Potassium 4.2 mmol/L Chloride 97 mmol/L CO2 24 mmol/L Anion Gap 18.2 BUN 13 mg/dL Creatinine 0.8 mg/dL Cr Clearance (Est) 94.1900 mL/min eGFR 72.7 mL/min Glucose 369 mg/dL Osmolality - Calculated 295 mOsm/kg Calcium 9.8 mg/dL Protein, Total 6.5 g/dL Albumin 4.3 g/dL Globulin 2.2 g/dL Bilirubin, Total 0.2 mg/dL ALT (SGPT) 26 U/L AST (SGOT) 19 U/L Alkaline Phosphatase 94 IU/L WBC 5.9 10 3/uL RBC 4.02 10 6/uL HGB 11.8 g/dL HCT 35.8 % MCV 89.1 fL MCH 29.4 pg MCHC 33.0 g/dL RDW 13.1 % Platelet Count 200 10 3/cmm MPV 9.3 fL Neutrophils 4.64 10 3/uL Lymphocytes 0.8 10 3/uL Monocytes 0.3 10 3/uL Eosinophils 0.0 10 3/uL Basophils 0.0 10 3/uL Neutrophil % 78.9 % Lymphocyte % 14.3 % Monocyte % 5.1 % Eosinophil % 0.7 % Basophils % 0.5 % NRBC % 0 % Impression: Right breast cancer Status post right lumpectomy with sentinel lymph node dissection done on 04/27/2019 Final pathology report showed 1.1 cm, grade 2, invasive tumor with clear margins pT1c, 0 out of 2 sentinel lymph node positive for metastatic disease pN0 Oncotype DX score low at 7, started on Arimidex 1 mg by mouth daily along with vitamin D/calcium supplement for 5 years on 05/20/2019 Patient discontinued Arimidex because of related side effects especially increase in muscle skeleton discomfort and on 07/16/2019, she was started on Aromasin 25 mg by mouth daily Completed postlumpectomy radiation therapy on 07/01/2019 Infiltrating ductal carcinoma of right breast per ultrasound-guided biopsy done on 03/29/2019 which showed ER 89%, OR 90%, HER-2/wisam negative, Ki-67 6% (favorable) Mammogram done on 02/16/2019 showed 10 mm asymmetric density upper outer right breast As per patient colonoscopy done in September 2018 showed no abnormality Follow-up mammogram done on February 16, 2020 showed BI-RADS 2, benign Plan: Discussed with patient regarding her labs white blood count 5.9 hemoglobin 11.8 hematocrit 35.8 platelets 200,000 CMP is within normal limit except glucose 369 Clinically, patient is doing well with no signs symptom suggestive of recurrence of disease, tolerating Aromasin/vitamin D/calcium, well. Her follow-up mammogram done in February 2020 showed no abnormality except postoperative changes in the right breast. Patient said she was having discomfort in her left arm for which she underwent cardiac evaluation including myocardial perfusion SPECT scan which was done on February 15, 2020 and report shows unremarkable myocardial perfusion imaging. Normal ejection fraction at 65%. No gross wall motion abnormality. As far as hyperglycemia is concerned, patient was advised to monitor her diet and follow diabetic diet and instruction and be compliant with her medication and follow-up with PMD regarding further management. Return to clinic in 4 months with CBC CMP Signed By: Adal Farias M.D. <<Signature on File>>
== END 2020-06-11 05:37 | disposition home or self-care (01) ==
LOC: ONCMED 05:39
PROVIDERS: Visit Provider Internal Medicine Hematology & Oncology
DX: C50.411 Malignant neoplasm of upper-outer quadrant of right female breast (principal); Z17.0 Estrogen receptor positive status [ER+]; Z79.818 Long term (current) use of other agents affecting estrogen receptors and estrogen levels; Z79.899 Other long term (current) drug therapy
CPT/HCPCS: 99214

== ENCOUNTER 2020-09-11 11:00 | Outpatient (CLI) | payer OTHER, MEDICAID, SELFPAY ==
--- NOTE | 2020-09-11 11:08 | MM_ITS ---
WS: [id number] BILATERAL DIGITAL DIAGNOSTIC MAMMOGRAM MAMMOGRAPHY WITH CAD CLINICAL INFORMATION: RT BREAST LUMP/HX OF BREAST CA COMPARISON: February 16, 2020 TECHNIQUE: Bilateral CC, MLO, and ML views. FINDINGS: The breasts are composed of heterogeneous fibroglandular density, which can limit the detection of sm all underlying mass lesions. Palpable marker inner quadrant right breast along the chest wall. No vinnie mographic abnormalities in this area. Ultrasound is pending. Stable postoperative changes lumpectomy upper inner quadrant right breast posterior depth with surgic al clips. Parenchymal fibrosis in this area is similar in appearance. Skin thickening right breast co nsistent with treatment-related changes. Left breast is unchanged and unremarkable. Vascular calcification. ULTRASOUND BREAST RIGHT TECHNIQUE: Ultrasound right breast focused area of concern. CLINICAL INFORMATION: RT BREAST LUMP/HX OF BREAST CA COMPARISON: None. FINDINGS: ULTRASOUND BREAST RIGHT TECHNIQUE: Ultrasound right breast focused area of concern. CLINICAL INFORMATION: RT BREAST LUMP/HX OF BREAST CA COMPARISON: None. FINDINGS: Ultrasound right breast at the 12:00-200 position. No suspicious underlying parenchymal abnormalities . No cystic or solid lesions. No lesions to target for biopsy. MM/[place] [id number] IMPRESSION: BI-RADS: 2-Benign FOLLOW UP: 1 Year Follow-up Recommend return to annual diagnostic mammography.
--- NOTE | 2020-09-11 11:18 | US_ITS ---
WS: [id number] BILATERAL DIGITAL DIAGNOSTIC MAMMOGRAM MAMMOGRAPHY WITH CAD CLINICAL INFORMATION: RT BREAST LUMP/HX OF BREAST CA COMPARISON: February 16, 2020 TECHNIQUE: Bilateral CC, MLO, and ML views. FINDINGS: The breasts are composed of heterogeneous fibroglandular density, which can limit the detection of sm all underlying mass lesions. Palpable marker inner quadrant right breast along the chest wall. No vinnie mographic abnormalities in this area. Ultrasound is pending. Stable postoperative changes lumpectomy upper inner quadrant right breast posterior depth with surgic al clips. Parenchymal fibrosis in this area is similar in appearance. Skin thickening right breast co nsistent with treatment-related changes. Left breast is unchanged and unremarkable. Vascular calcification. ULTRASOUND BREAST RIGHT TECHNIQUE: Ultrasound right breast focused area of concern. CLINICAL INFORMATION: RT BREAST LUMP/HX OF BREAST CA COMPARISON: None. FINDINGS: ULTRASOUND BREAST RIGHT TECHNIQUE: Ultrasound right breast focused area of concern. CLINICAL INFORMATION: RT BREAST LUMP/HX OF BREAST CA COMPARISON: None. FINDINGS: Ultrasound right breast at the 12:00-200 position. No suspicious underlying parenchymal abnormalities . No cystic or solid lesions. No lesions to target for biopsy. US/US breast RT limited* [id number] IMPRESSION: BI-RADS: 2-Benign FOLLOW UP: 1 Year Follow-up Recommend return to annual diagnostic mammography.
== END 2020-09-11 11:01 | disposition home or self-care (01) ==
LOC: RADSHAW 11:04
PROVIDERS: PCP Physician Assistant Medical; Visit Provider Internal Medicine Hematology & Oncology
DX: C50.411 Malignant neoplasm of upper-outer quadrant of right female breast (principal)
CPT/HCPCS: 76642; 77066

== ENCOUNTER 2020-10-22 08:19 | Outpatient (CLI) | payer OTHER, MEDICAID, SELFPAY ==
--- NOTE | 2020-10-28 20:23 | ONC FU_ITS ---
Dr. Farias follow up note Patient: Harleen Pierre Unit #: [id number]: [id number] Dicatated By: Adal Farias M.D.Date of Visit:Oct 22, 2020 Onc Med Follow-up/Prog Note History of Present Illness: Mrs. Harleen Pierre, is a 60-year-old female found to have right breast abnormality in her routine follow-up mammogram done on 02/16/2019 which showed 10 mm asymmetric density in the right upper quadrant of for right breast , subsequently on 03/29/2019 underwent ultrasound-guided right breast biopsy and it confirmed. Infiltrating ductal carcinoma ER 89% positive [place] 90% positive HER-2/wisam negative Ki-67 6% favorable.Underwent right breast lumpectomy with sentinel lymph node dissection on 04/27/2019, final pathology report showed 1.1 cm invasive tumor, grade 2, with a clear margin pT1c and 0 out of 2 sentinel lymph node showed metastatic disease pN0. Oncotype DX reported on 05/16/2019 e.g. low recurrence score at 7, means absolute chemotherapy benefit is less than 1% and risk of distant recurrence at 9 years with aromatase inhibitor is about 3%. Patient was started on Arimidex 1 mg by mouth daily along with vitamin D/calcium supplement on 05/20/2019 Patient took it for few days but because of headaches and generalized muscular skeleton pain although patient has history of arthritis, patient decided to stop her Arimidex and on 07/16/2018 she was started on Aromasin 25 mg by mouth daily Comleted postlumpectomy radiation therapy on 07/01/2019 Patient denies any nipple discharge or retraction patient denies any right axillary lymphadenopathy patient denies any overlying skin changes. Patient denies any bony pains. Patient denies any weight loss next Family history positive for maternal aunt diagnosed with breast cancer at age 70 Mammogram done on September 11, 2020 showed BI-RADS 2 benign Came for follow-up, patient denies any specific complaints, no fever chills, no nausea or vomiting, no diarrhea constipation, as per patient on October 19, 2020 she was admitted to [facility] then referred to [facility] in [place] where she was diagnosed with TIA and MRI scan of the brain shows incidental small intracranial aneurysm and patient was managed medically, no more episodes. And cardiology/neurology is monitoring Medications: Advair Diskus 1 puff(s) (of 250-50 mcg/dose) Aerosol Powder, Breath Activated Inhalation daily PRN, amLODIPine Besylate (5 mg) Tablet Oral daily, Aspirin 1 Tablet (of 81 mg) Oral daily, Gabapentin 1 Capsule (of 300 mg) Oral b.i.d., Glimepiride 1 Tablet (of 2 mg) Oral daily, hydroCHLOROthiazide 1 Tablet (of 12.5 mg) Oral daily, Lisinopril 1 Tablet (of 40 mg) Oral daily, metFORMIN HCl 1 Tablet (of 1000 mg) Oral b.i.d., Omeprazole 1 Capsule (of 40 mg) Tablet, enteric coated Oral daily, Ventolin HFA 1 puff(s) (of 108 (90 base) mcg/act) Aerosol, solution Inhalation PRN Allergies: CeleBREX, Ibuprofen, latex, and Vicodin. Review of Systems: Review of Systems is not available for this patient. Vital Signs: Performed on Oct 22, 2020 10:16 Height - 66.00 in Weight - 178.6 lbs (LOW) BSA - 1.91 sq.m BMI - 28.83 Temperature - 97.8 F (LOW) Pulse - 95 /min Respiration - 18 /min BP - 99/62 mm(hg) O2 Sat - 99 % Pain - 0 Fatigue - 8 Performance Status: 1 - No physically strenuous activity, but ambulatory and able to carry out light or sedentary work (e.g. office work, light house work). (ECOG) Physical Examination: Respiratory - Lungs are clear to auscultation, Cardiovascular - Regular rate and rhythm of heart, Gastrointestinal - Soft, bowel sounds present, Extremities - No visible edema. Lab/Imaging: Test performed on Oct 21, 2020 18:50 Sodium 138 mmol/L Potassium 4.0 mmol/L Chloride 103 mmol/L CO2 23 mmol/L BUN 13 mg/dL Creatinine 0.70 mg/dL Cr Clearance (Est) 106.57 mL/min Glucose 258 mg/dL Calcium 8.4 mg/dL Protein, Total 6.5 g/dL Albumin 4.1 g/dL Bilirubin, Total 0.2 mg/dL ALT (SGPT) 14 Units/L AST (SGOT) 16 Units/L Alkaline Phosphatase 103 IU/L WBC 4.0 10^3/uL RBC 3.92 10^6/uL HGB 11.2 g/dL HCT 35.0 % MCV 89.3 fl MCH 28.6 pg MCHC 32.0 g/dL RDW 13.7 % Platelet Count 150 10^3/uL MPV 8.6 fl Neutrophils 2.74 10^3/uL Lymphocytes 0.91 10^3/uL Monocytes 0.18 10^3/uL Eosinophils 0.03 10^3/uL Basophils 0.02 10^3/uL Neutrophil % 69 % Lymphocyte % 23 % Monocyte % 5 % Eosinophil % 1 % Basophils % 1 % Test performed on Jun 07, 2020 10:37 Anion Gap 18.2 eGFR 72.7 mL/min Osmolality - Calculated 295 mOsm/kg Globulin 2.2 g/dL NRBC % 0 % Impression: Right breast cancer Status post right lumpectomy with sentinel lymph node dissection done on 04/27/2019 Final pathology report showed 1.1 cm, grade 2, invasive tumor with clear margins pT1c, 0 out of 2 sentinel lymph node positive for metastatic disease pN0 Oncotype DX score low at 7, started on Arimidex 1 mg by mouth daily along with vitamin D/calcium supplement for 5 years on 05/20/2019 Patient discontinued Arimidex because of related side effects especially increase in muscle skeleton discomfort and on 07/16/2019, she was started on Aromasin 25 mg by mouth daily Completed postlumpectomy radiation therapy on 07/01/2019 Infiltrating ductal carcinoma of right breast per ultrasound-guided biopsy done on 03/29/2019 which showed ER 89%, W[place] 90%, HER-2/wisam negative, Ki-67 6% (favorable) Mammogram done on 02/16/2019 showed 10 mm asymmetric density upper outer right breast As per patient colonoscopy done in September 2018 showed no abnormality Follow-up mammogram done on February 16, 2020 showed BI-RADS 2, benign Follow-up mammogram done on September 11, 2020 showed BI-RADS 2 benign findings Plan: Discussed with patient regarding her labs done on October 21, 2020 white blood count 4 hemoglobin 11.2 g compared to 11.8 g on June 07, 2021, hematocrit 35 platelets 150 CMP within normal limit except glucose 258 Clinically, patient doing reasonably well, now recovering from recent hospitalization for possible TIA, now being monitored by cardiology as well as neurology. There is no signs symptoms just of recurrence of breast cancer, tolerating Aromasin/vitamin D/calcium well, her follow-up mammogram shows no abnormality, will continue with same and then she will return to clinic in 6 months with CBC and CMP Signed By: Adal Farias M.D. <<Signature on File>>
== END 2020-10-22 08:20 | disposition home or self-care (01) ==
LOC: ONCMED 08:25
PROVIDERS: PCP Physician Assistant Medical; Visit Provider Internal Medicine Hematology & Oncology
DX: C50.811 Malignant neoplasm of overlapping sites of right female breast (principal); Z17.0 Estrogen receptor positive status [ER+]; Z90.11 Acquired absence of right breast and nipple; E55.9 Vitamin D deficiency, unspecified; Z79.899 Other long term (current) drug therapy; Z79.811 Long term (current) use of aromatase inhibitors
CPT/HCPCS: 99214

== ENCOUNTER 2021-06-03 12:52 | Outpatient (CLI) | payer MEDICARE, MEDICAID, SELFPAY ==
[2021-06-03 13:20] LABS: Basophils % 0.5 %; Eosinophils # 0.1 10^3/uL (0.0-0.8); Eosinophils % 1.4 %; Hematocrit 36.1 % (37.0-47.0); Hemoglobin 11.6 g/dL (11.5-15.3); Lymphocytes # 1.2 10^3/uL (0.8-4.8); Lymphocytes % 21.3 %; Mean Corpuscular HGB Conc 32.1 g/dL (30.0-36.0); Mean Corpuscular Hemoglobin 29.6 pg (28.0-34.0); Mean Corpuscular Volume 92.1 fl (81-99); Mean Platelet Volume 9.4 fL (7.4-10.4); Monocytes # 0.3 10^3/uL (0.2-0.9); Monocytes % 6.1 %; Neutrophils # 3.89 10^3/uL (1.8-7.7); Neutrophils % 69.8 %; Nucleated Red Blood Cells % 0 %; Platelet Count 133 10^3/cmm (130-400); Red Blood Count 3.92 10^6/uL (4.1-5.3); Red Cell Distribution Width 14.3 % (12.1-15.1); White Blood Count 5.6 10^3/uL (4.0-10.0)
[2021-06-03 14:12] LABS: Alanine Aminotransferase 17 U/L (0-33); Albumin Level 4.1 g/dL (3.5-5.2); Alkaline Phosphatase 122 IU/L (35-105); Anion Gap 20.2 (5-19); Aspartate Amino Transferase 17 U/L (0-32); Blood Urea Nitrogen 18 mg/dL (8-23); Calcium 8.2 mg/dL (8.5-10.5); Carbon Dioxide 20 mmol/L (22-29); Chloride 103 mmol/L (98-107); Globulin 2.1 g/dL (1.3-4.6); Glomerular Filtration Rate 72.4 mL/min (90-130); Glucose 253 mg/dL (65-115); Osmolality Calculated 298 mOsm/kg (285-295); Potassium 4.2 mmol/L (3.5-5.1); Sodium 139 mmol/L (136-145); Total Bilirubin 0.2 mg/dL (0.15-1.2); Total Protein 6.2 g/dL (6.6-8.7)
--- NOTE | 2021-06-03 15:33 | ONC FU_ITS ---
Dr. Farias follow up note Patient: Harleen Pierre Unit #: [id number]: [id number] Dicatated By: Adal Farias M.D.Date of Visit:Jun 03, 2021 Onc Med Follow-up/Prog Note History of Present Illness: Mrs. Harleen Pierre, is a 61-year-old female found to have right breast abnormality in her routine follow-up mammogram done on 02/16/2019 which showed 10 mm asymmetric density in the right upper quadrant of for right breast , subsequently on 03/29/2019 underwent ultrasound-guided right breast biopsy and it confirmed. Infiltrating ductal carcinoma ER 89% positive [place] 90% positive HER-2/wisam negative Ki-67 6% favorable.Underwent right breast lumpectomy with sentinel lymph node dissection on 04/27/2019, final pathology report showed 1.1 cm invasive tumor, grade 2, with a clear margin pT1c and 0 out of 2 sentinel lymph node showed metastatic disease pN0. Oncotype DX reported on 05/16/2019 e.g. low recurrence score at 7, means absolute chemotherapy benefit is less than 1% and risk of distant recurrence at 9 years with aromatase inhibitor is about 3%. Patient was started on Arimidex 1 mg by mouth daily along with vitamin D/calcium supplement on 05/20/2019 Patient took it for few days but because of headaches and generalized muscular skeleton pain although patient has history of arthritis, patient decided to stop her Arimidex and on 07/16/2018 she was started on Aromasin 25 mg by mouth daily, Which she stopped taking in October 2020 because of episode of TIA-like symptoms and headaches, she was also diagnosed with intracranial aneurysm, Was started on Femara 2.5 mg daily on June 03, 2021 Comleted postlumpectomy radiation therapy on 07/01/2019 Patient denies any nipple discharge or retraction patient denies any right axillary lymphadenopathy patient denies any overlying skin changes. Patient denies any bony pains. Patient denies any weight loss next Family history positive for maternal aunt diagnosed with breast cancer at age 70 Mammogram done on September 11, 2020 showed BI-RADS 2 benign Came for follow-up, denies any specific complaints, no fever chills, no nausea or vomiting, no diarrhea constipation, no headaches no blurred vision no double vision, as per patient she was referred to neurosurgery for intracranial aneurysm and she is still awaiting appointment. As per patient she is feeling much better since she is off Aromasin, she thought Aromasin was causing symptoms like headaches and TIA-like symptoms. Medications: Advair Diskus 1 puff(s) (of 250-50 mcg/dose) Aerosol Powder, Breath Activated Inhalation daily PRN, amLODIPine Besylate (5 mg) Tablet Oral daily, Aspirin 1 Tablet (of 81 mg) Oral daily, Gabapentin 1 Capsule (of 300 mg) Oral b.i.d., Glimepiride 1 Tablet (of 2 mg) Oral daily, hydroCHLOROthiazide 1 Tablet (of 12.5 mg) Oral daily, Lisinopril 1 Tablet (of 40 mg) Oral daily, metFORMIN HCl 1 Tablet (of 1000 mg) Oral b.i.d., Omeprazole 1 Capsule (of 40 mg) Tablet, enteric coated Oral daily, Ventolin HFA 1 puff(s) (of 108 (90 base) mcg/act) Aerosol, solution Inhalation PRN Allergies: CeleBREX, Ibuprofen, latex, and Vicodin. Review of Systems: Review of Systems is not available for this patient. Vital Signs: Vitals are not available for this patient. Performance Status: 1 - No physically strenuous activity, but ambulatory and able to carry out light or sedentary work (e.g. office work, light house work). (ECOG) Physical Examination: Respiratory - Lungs are clear, Cardiovascular - Regular rate and rhythm of heart, Gastrointestinal - Soft, bowel sounds present, Extremities - No visible edema. Lab/Imaging: Most recent lab results are not available for this patient. Impression: Right breast cancer Status post right lumpectomy with sentinel lymph node dissection done on 04/27/2019 Final pathology report showed 1.1 cm, grade 2, invasive tumor with clear margins pT1c, 0 out of 2 sentinel lymph node positive for metastatic disease pN0 Oncotype DX score low at 7, started on Arimidex 1 mg by mouth daily along with vitamin D/calcium supplement for 5 years on 05/20/2019 Patient discontinued Arimidex because of related side effects especially increase in muscle skeleton discomfort and on 07/16/2019, she was started on Aromasin 25 mg by mouth daily Completed postlumpectomy radiation therapy on 07/01/2019 Infiltrating ductal carcinoma of right breast per ultrasound-guided biopsy done on 03/29/2019 which showed ER 89%, [place] 90%, HER-2/wisam negative, Ki-67 6% (favorable) Mammogram done on 02/16/2019 showed 10 mm asymmetric density upper outer right breast As per patient colonoscopy done in September 2018 showed no abnormality Follow-up mammogram done on February 16, 2020 showed BI-RADS 2, benign Follow-up mammogram done on September 11, 2020 showed BI-RADS 2 benign findings Plan: Discussed with patient regarding her labs white blood count 5.6 hemoglobin 11.6 hematocrit 36.1 platelets 133,000 CMP within normal limit except glucose 253 Clinically, patient is doing well with no new signs symptoms suggestive of recurrence of disease, patient is off Aromasin since October 2020 as per patient she read somewhere that it can cause headaches and TIA-like symptoms, patient is reluctant to restart Aromasin but may try Femara, will give her prescription for Femara 2.5 mg p.o. daily for 1 month then return to clinic in a month for further discussion, tolerated, will continue with Femara to complete 5 years of adjuvant hormonal therapy. Patient had mammogram done in September 2020 for discomfort in her right breast it shows no abnormality and repeat mammogram in 1 year was recommended which will be due in September 2021. As her ultrasound right breast shows no suspicious underlying parenchymal abnormality either. Signed By: Adal Farias M.D. <<Signature on File>>
== END 2021-06-03 12:53 | disposition home or self-care (01) ==
LOC: ONCMED 12:55
PROVIDERS: PCP Physician Assistant; Visit Provider Internal Medicine Hematology & Oncology
DX: C50.811 Malignant neoplasm of overlapping sites of right female breast (principal); Z17.0 Estrogen receptor positive status [ER+]; Z90.11 Acquired absence of right breast and nipple; E55.9 Vitamin D deficiency, unspecified; Z79.811 Long term (current) use of aromatase inhibitors; Z79.899 Other long term (current) drug therapy; Z92.3 Personal history of irradiation
CPT/HCPCS: 36415; 80053; 85025; 99214

== ENCOUNTER 2021-07-04 13:01 | Outpatient (CLI) | payer MEDICARE, MEDICAID, SELFPAY | END 2021-07-04 13:02 | disposition home or self-care (01) | LOC: ONCMED 13:07 | PROVIDERS: PCP Physician Assistant; Visit Provider Nurse Practitioner Family | DX: C50.811 Malignant neoplasm of overlapping sites of right female breast (principal); Z17.0 Estrogen receptor positive status [ER+]; Z90.11 Acquired absence of right breast and nipple; Z79.811 Long term (current) use of aromatase inhibitors; Z92.3 Personal history of irradiation | CPT/HCPCS: 99214 ==

== ENCOUNTER 2021-10-03 08:35 | Outpatient (CLI) | payer MEDICARE, MEDICAID, SELFPAY ==
--- NOTE | 2021-10-03 08:44 | MM_ITS ---
WS: [id number] DIAGNOSTIC BILATERAL 3D TOMOSYNTHESIS DIGITAL MAMMOGRAM WITH CAD HISTORY: HX OF BREAST CA COMPARISON: 09/11/2020, 02/16/2020, 02/16/2019 and 01/10/2019 TECHNIQUE: Bilateral craniocaudad, mediolateral oblique, and mediolateral views are submitted. Comput er aided detection utilized. Breast composition: There are scattered areas of fibroglandular density. Postoperative changes are no renee in the upper-outer quadrant RIGHT breast. There is architectural distortion and surgical clips. N o increased soft tissue. No interval change. LEFT breast is stable. MM/[place] [id number] IMPRESSION: BI-RADS: 2-Benign FOLLOW UP: 1 Year Follow-up
== END 2021-10-03 08:36 | disposition home or self-care (01) ==
LOC: RAD 08:38
PROVIDERS: PCP Physician Assistant; Visit Provider Internal Medicine Hematology & Oncology
DX: Z85.3 Personal history of malignant neoplasm of breast (principal)
CPT/HCPCS: 77062

== ENCOUNTER 2021-10-03 09:21 | Outpatient (CLI) | payer MEDICARE, MEDICAID, SELFPAY ==
[2021-10-03 10:18] LABS: Basophils % 0.4 %; Eosinophils # 0.1 10^3/uL (0.0-0.8); Hematocrit 34.9 % (37.0-47.0); Lymphocytes # 0.9 10^3/uL (0.8-4.8); Lymphocytes % 18.8 %; Mean Corpuscular HGB Conc 31.5 g/dL (30.0-36.0); Mean Corpuscular Hemoglobin 29.3 pg (28.0-34.0); Mean Corpuscular Volume 92.8 fl (81-99); Mean Platelet Volume 8.8 fL (7.4-10.4); Monocytes # 0.4 10^3/uL (0.2-0.9); Monocytes % 7.5 %; Neutrophils # 3.56 10^3/uL (1.8-7.7); Neutrophils % 71.7 %; Nucleated Red Blood Cells % 0 %; Platelet Count 180 10^3/cmm (130-400); Red Blood Count 3.76 10^6/uL (4.1-5.3); Red Cell Distribution Width 14.7 % (12.1-15.1)
[2021-10-03 10:49] LABS: Anion Gap 18.4 (5-19); Blood Urea Nitrogen 22 mg/dL (8-23); Carbon Dioxide 24 mmol/L (22-29); Chloride 99 mmol/L (98-107); Glomerular Filtration Rate 63.2 mL/min (90-130); Potassium 4.4 mmol/L (3.5-5.1); Sodium 137 mmol/L (136-145)
[2021-10-03 10:50] LABS: Alanine Aminotransferase 24 U/L (0-33); Albumin Level 4.4 g/dL (3.5-5.2); Alkaline Phosphatase 103 IU/L (35-105); Aspartate Amino Transferase 20 U/L (0-32); Globulin 2.5 g/dL (1.3-4.6); Glucose 186 mg/dL (65-115); Osmolality Calculated 292 mOsm/kg (285-295); Total Bilirubin 0.2 mg/dL (0.15-1.2); Total Protein 6.9 g/dL (6.6-8.7)
[2021-10-03 15:03] LABS: Ferritin 165 ng/mL (15-150); Iron 52 ug/dL (37-145); Percent Saturation 17.8 % (20-50); Total Iron Binding Capacity 291 mcg/dl; Unsaturated Iron Binding 239 ug/dL (112-347)
[2021-10-03 15:19] LABS: Vitamin B12 316 pg/mL (232-1245)
--- NOTE | 2021-10-04 12:23 | ONC FU_ITS ---
Dr. Farias follow up note Patient: Harleen Pierre Unit #: [id number]: [id number] Dicatated By: Adal Farias M.D.Date of Visit:Oct 03, 2021 Onc Med Follow-up/Prog Note History of Present Illness: Mrs. Harleen Pierre, is a 61-year-old female found to have right breast abnormality in her routine follow-up mammogram done on 02/16/2019 which showed 10 mm asymmetric density in the right upper quadrant of for right breast , subsequently on 03/29/2019 underwent ultrasound-guided right breast biopsy and it confirmed. Infiltrating ductal carcinoma ER 89% positive [place] 90% positive HER-2/wisam negative Ki-67 6% favorable.Underwent right breast lumpectomy with sentinel lymph node dissection on 04/27/2019, final pathology report showed 1.1 cm invasive tumor, grade 2, with a clear margin pT1c and 0 out of 2 sentinel lymph node showed metastatic disease pN0. Oncotype DX reported on 05/16/2019 e.g. low recurrence score at 7, means absolute chemotherapy benefit is less than 1% and risk of distant recurrence at 9 years with aromatase inhibitor is about 3%. Patient was started on Arimidex 1 mg by mouth daily along with vitamin D/calcium supplement on 05/20/2019 Patient took it for few days but because of headaches and generalized muscular skeleton pain although patient has history of arthritis, patient decided to stop her Arimidex and on 07/16/2018 she was started on Aromasin 25 mg by mouth daily, Which she stopped taking in October 2020 because of episode of TIA-like symptoms and headaches, she was also diagnosed with intracranial aneurysm, Was started on Femara 2.5 mg daily on June 03, 2021 Comleted postlumpectomy radiation therapy on 07/01/2019 Patient denies any nipple discharge or retraction patient denies any right axillary lymphadenopathy patient denies any overlying skin changes. Patient denies any bony pains. Patient denies any weight loss Family history positive for maternal aunt diagnosed with breast cancer at age 70 Mammogram done on September 11, 2020 showed BI-RADS 2 benign Mammogram done on October 04, 2019 shows BI-RADS 2, benign Tolerating Femara well Came for follow-up, denies any specific complaints, no fever chills, no nausea or vomiting, no diarrhea constipation, no hemoptysis hematemesis, tolerating Femara well along with vitamin D and calcium. Medications: Advair Diskus 1 puff(s) (of 250-50 mcg/dose) Aerosol Powder, Breath Activated Inhalation daily PRN, amLODIPine Besylate (5 mg) Tablet Oral daily, Aspirin 1 Tablet (of 81 mg) Oral daily, Gabapentin 1 Capsule (of 300 mg) Oral b.i.d., Glimepiride 1 Tablet (of 2 mg) Oral daily, hydroCHLOROthiazide 1 Tablet (of 12.5 mg) Oral daily, Lisinopril 1 Tablet (of 40 mg) Oral daily, metFORMIN HCl 1 Tablet (of 1000 mg) Oral b.i.d., Omeprazole 1 Capsule (of 40 mg) Tablet, enteric coated Oral daily, Ventolin HFA 1 puff(s) (of 108 (90 base) mcg/act) Aerosol, solution Inhalation PRN Allergies: CeleBREX, Ibuprofen, latex, and Vicodin. Review of Systems: Review of Systems is not available for this patient. Vital Signs: Performed on Oct 03, 2021 14:32 Height - 66.00 in BP - 134/78 mm(hg) Performed on Oct 03, 2021 14:32 Height - 66.00 in Weight - 189.8 lbs (LOW) BSA - 1.96 sq.m BMI - 30.63 (HIGH) Temperature - 97.6 F (LOW) Pulse - 81 /min Respiration - 18 /min BP - 178/84 mm(hg) (HIGH) O2 Sat - 96 % Pain - 0 Fatigue - 7 Performance Status: 1 - No physically strenuous activity, but ambulatory and able to carry out light or sedentary work (e.g. office work, light house work). (ECOG) Physical Examination: Respiratory - Lungs are clear to auscultation, Cardiovascular - Regular rate and rhythm of heart, Gastrointestinal - Soft, bowel sounds present, Extremities - No visible edema. Lab/Imaging: Most recent lab results are not available for this patient. Impression: Right breast cancer Status post right lumpectomy with sentinel lymph node dissection done on 04/27/2019 Final pathology report showed 1.1 cm, grade 2, invasive tumor with clear margins pT1c, 0 out of 2 sentinel lymph node positive for metastatic disease pN0 Oncotype DX score low at 7, started on Arimidex 1 mg by mouth daily along with vitamin D/calcium supplement for 5 years on 05/20/2019 Patient discontinued Arimidex because of related side effects especially increase in muscle skeleton discomfort and on 07/16/2019, she was started on Aromasin 25 mg by mouth daily Completed postlumpectomy radiation therapy on 07/01/2019 Infiltrating ductal carcinoma of right breast per ultrasound-guided biopsy done on 03/29/2019 which showed ER 89%, [place] 90%, HER-2/wisam negative, Ki-67 6% (favorable) Mammogram done on 02/16/2019 showed 10 mm asymmetric density upper outer right breast As per patient colonoscopy done in September 2018 showed no abnormality Follow-up mammogram done on February 16, 2020 showed BI-RADS 2, benign Follow-up mammogram done on September 11, 2020 showed BI-RADS 2 benign findings Plan: Discussed with patient regarding her labs white blood count 5 hemoglobin 11 g compared to 11.6 g previously hematocrit 34.9 platelets 180,000 CMP within normal limit except glucose 180 Follow-up mammogram done this morning Prelim Findings shows benign findings Clinically, patient doing well with no new signs symptom suggestive of recurrence of disease tolerating Femara along with vitamin D and calcium well, will continue with same her follow-up mammogram done this morning shows benign findings As per his mild anemia is concerned, will consider anemia work-up and if it shows deficiency, will consider supplement Return to clinic in 6 months with CBC CMP Signed By: Adal Farias M.D. <<Signature on File>>
== END 2021-10-03 09:22 | disposition home or self-care (01) ==
PROVIDERS: PCP Physician Assistant; Visit Provider Internal Medicine Hematology & Oncology
DX: C50.811 Malignant neoplasm of overlapping sites of right female breast (principal); Z17.0 Estrogen receptor positive status [ER+]; E55.9 Vitamin D deficiency, unspecified; D64.9 Anemia, unspecified; Z79.818 Long term (current) use of other agents affecting estrogen receptors and estrogen levels; Z85.3 Personal history of malignant neoplasm of breast
CPT/HCPCS: 36415; 77062; 80053; 82607; 82728; 83540; 83550; 85025; 99214

== ENCOUNTER → 2021-10-15 10:43 | Outpatient (BNVA) | payer MEDICARE, MEDICAID, SELFPAY | PROVIDERS: PCP Physician Assistant; Visit Provider Internal Medicine Cardiovascular Disease | DX: R55 Syncope and collapse (principal); I67.1 Cerebral aneurysm, nonruptured; E78.5 Hyperlipidemia, unspecified; I10 Essential (primary) hypertension; E11.649 Type 2 diabetes mellitus with hypoglycemia without coma; Z79.84 Long term (current) use of oral hypoglycemic drugs; R07.89 Other chest pain; I49.3 Ventricular premature depolarization; I49.1 Atrial premature depolarization | CPT/HCPCS: 93270; 99214 ==

== ENCOUNTER 2022-04-24 08:16 | Outpatient (CLI) | payer MEDICARE, MEDICAID, SELFPAY ==
--- NOTE | 2022-04-24 08:31 | MR_ITS ---
WS: [id number] MRA ANGIOGRAPHY [place] HISTORY: ANEURYSM COMPARISON: None available. TECHNIQUE: 3-D MR angiography is performed of the [place]. All images are reviewed including source images. Distal vertebral and basilar arteries are intact with no significant stenosis or plaque. Posterior ce rebral arteries are normal course and caliber. Hypoplastic or absent RIGHT posterior communicating ar izzy. Normal size and patent LEFT posterior communicating artery. Mild atherosclerosis of the internal carotid arteries to the cavernous sinuses. There is very mild na rrowing of the carotid arteries. Mild narrowing continues into the proximal middle cerebral arteries and the A1 segments. There is no high-grade stenosis. No occlusion. 3.4 mm outpouching involving the trifurcation of the RIGHT middle cerebral artery. Aneurysm is just proximal to the M2 segment. No adj acent hemorrhage is identified on this exam. LEFT middle cerebral artery is negative. No aneurysm of the anterior communicating artery. MR/MR angio head wo con [id number] IMPRESSION: 1. No prior studies are present for comparison. Patient provided a history of cerebral aneurysm. 2. Small 3.4 mm aneurysm noted involving the RIGHT M1 trifurcation. 3. No additional aneurysms are identified. 4. 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
== END 2022-04-24 08:17 | disposition home or self-care (01) ==
LOC: RAD 08:17
PROVIDERS: PCP Physician Assistant; Visit Provider Student in an Organized Health Care Education/Training Program
DX: I72.9 Aneurysm of unspecified site (principal)
CPT/HCPCS: 70544

== ENCOUNTER 2022-06-10 13:19 | Oncology outpatient (recurring) (ONCR) | payer MEDICARE, MEDICAID, SELFPAY ==
[2022-06-10 14:02] LABS: Basophils % 0.4 %; Eosinophils # 0.1 10^3/uL (0.0-0.8); Eosinophils % 1.3 %; Hematocrit 35.5 % (37.0-47.0); Hemoglobin 11.3 g/dL (11.5-15.3); Lymphocytes # 1.1 10^3/uL (0.8-4.8); Lymphocytes % 20.5 %; Mean Corpuscular HGB Conc 31.8 g/dL (30.0-36.0); Mean Corpuscular Hemoglobin 28.8 pg (28.0-34.0); Mean Corpuscular Volume 90.3 fl (81-99); Mean Platelet Volume 9.4 fL (7.4-10.4); Monocytes # 0.4 10^3/uL (0.2-0.9); Monocytes % 6.8 %; Neutrophils # 3.91 10^3/uL (1.8-7.7); Neutrophils % 70.3 %; Nucleated Red Blood Cells % 0 %; Platelet Count 214 10^3/cmm (130-400); Red Blood Count 3.93 10^6/uL (4.1-5.3); Red Cell Distribution Width 13.9 % (12.1-15.1); White Blood Count 5.6 10^3/uL (4.0-10.0)
[2022-06-10 14:14] LABS: Alanine Aminotransferase 12 U/L (0-33); Albumin Level 4.2 g/dL (3.5-5.2); Alkaline Phosphatase 110 U/L (35-105); Anion Gap 15.4 (5-19); Aspartate Amino Transferase 14 U/L (0-32); Blood Urea Nitrogen 15 mg/dL (8-23); Calcium 9.4 mg/dL (8.5-10.5); Carbon Dioxide 26 mmol/L (22-29); Chloride 101 mmol/L (98-107); Globulin 2.6 g/dL (1.3-4.6); Glomerular Filtration Rate 72.2 mL/min (90-130); Glucose 199 mg/dL (65-115); Osmolality Calculated 292 mOsm/kg (285-295); Potassium 4.4 mmol/L (3.5-5.1); Sodium 138 mmol/L (136-145); Total Bilirubin 0.2 mg/dL (0.15-1.2); Total Protein 6.8 g/dL (6.6-8.7)
== END 2022-07-05 23:59 | disposition home or self-care (01) ==
PROVIDERS: PCP Physician Assistant; Visit Provider Internal Medicine Hematology & Oncology
DX: C50.811 Malignant neoplasm of overlapping sites of right female breast (principal); Z17.0 Estrogen receptor positive status [ER+]; Z79.811 Long term (current) use of aromatase inhibitors; Z86.73 Personal history of transient ischemic attack (TIA), and cerebral infarction without residual deficits; Z80.3 Family history of malignant neoplasm of breast; Z92.3 Personal history of irradiation
CPT/HCPCS: 36415; 80053; 85025; 99214

== ENCOUNTER → 2022-08-18 08:00 | Outpatient (BNVA) | payer MEDICARE, MEDICAID, SELFPAY | PROVIDERS: PCP Physician Assistant; Referring Provider Physician Assistant; Visit Provider Specialist | DX: G61.0 Guillain-Barre syndrome (principal); I67.1 Cerebral aneurysm, nonruptured; Z86.73 Personal history of transient ischemic attack (TIA), and cerebral infarction without residual deficits; F40.240 Claustrophobia | CPT/HCPCS: 99204 ==

== ENCOUNTER 2022-08-30 14:47 | Emergency (ER) | payer MEDICARE, MEDICAID, SELFPAY ==
--- NOTE | 2022-08-30 14:58 | ECG_ITS ---
[facility] Test Date: 2022-08-30 Pat Name: Harleen Pierre Department: Room: Gender: Female [employer] Operator: : 1960 Requested By: Mitchell Teran Order Number: [id number] Angela MD: Angel Obrien M.D. Measurements Intervals [place] Rate: 70 P: 47 DC: 150 QRS: 26 QRSD: 73 T: 47 QT: 359 QTc: 389 Interpretive Statements SINUS RHYTHM Compared to ECG 06/16/2018 12:32:23 T-wave abnormality no longer present Electronically Signed On 08-30-2022 20:50:08 COMMERCIAL ACCOUNTANT by Angel Obrien M.D. [email or web address] [id number] f
[2022-08-30 15:03] VITALS: BP 165/83; PULSE 70; TEMP 36.7; O2SAT 96; BMI 29.9
--- NOTE | 2022-08-30 15:07 | XRR_ITS ---
PROCEDURE INFORMATION: Exam: XR Chest Exam date and time: 08/30/2022 4:21 PM Age: 62 years old Clinical indication: Pain; Chest pressure; Additional info: Cp TECHNIQUE: Imaging protocol: Radiologic exam of the chest. Views: 1 view. COMPARISON: CR XR chest 2V* [id number] 06/16/2018 1:15 PM FINDINGS: Lungs: Unremarkable. No consolidation. Pleural spaces: Unremarkable. No pleural effusion. No pneumothorax. Heart/Mediastinum: Heart appears mildly enlarged. Bones/joints: Unremarkable for age. XR/XR chest 1V portable [id number] IMPRESSION: Mild cardiomegaly otherwise negative chest.
--- NOTE | 2022-08-30 16:50 | W.ED.CHESTPA ---
HPI - Chest Pain General: Chief Complaint: Chest Pain Stated Complaint: chest pain/back pain Time Seen by Provider: 08/30/22 16:49 History of Present Illness: Ms. Pierre is a 62-year-old lady with complex history including recurrent Guillain-Pan?, history of stroke, hypertension, hyperlipidemia, diabetes presenting to the emergency department for chest discomfort. She notes 1 week history of intermittent substernal chest pain associated with radiation to the back and right arm. Occasional mild shortness of breath nausea however not reliably so. Not reliably exertional component. Does report chronic back pain which is similar to baseline. Density that when present is moderate. Course has persisted. No other specific changes in health, exacerbating, or alleviating factors identified. Onset (ago): day(s) Timing of current episode: episodic Prior episodes: No Onset: during rest Pain location: substernal Pain radiation: right arm and back Severity: moderate Quality: aching Relieving factors: nothing Exacerbating factors: nothing Associated symptoms: Reports dyspnea Review of Systems General: Reports: 10 or more systems reviewed and unremarkable except in HPI and below Resp: Reports: dyspnea PFSH ED PFSH: Medical History Anxiety Arthritis Asthma Atypical chest pain Breast cancer CVA (cerebral vascular accident) Diabetes Hypertension Skin cancer TIA (transient ischemic attack) Surgical History H/O dilation and curettage Hx of breast surgery Family History Other CAD (coronary artery disease) CHF (congestive heart failure) Cancer Diabetes Hypertension Lung disease Stroke Denies family history of Clotting disorder Dementia Chronic kidney disease (CKD) Suicide Anesthesia complication Bleeding disorder Social History Smoking and tobacco status: never smoked Alcohol intake: never Physical Exam Const: COMMON NORMALS: alert GENERAL APPEARANCE: cooperative and well developed HENMT: COMMON NORMALS: normocephalic and atraumatic HEAD & SCALP: normocephalic and atraumatic Eye: COMMON NORMALS: conjunctivae normal CONJUNCTIVA: Yes conjunctivae normal SCLERA: sclerae normal Neck/C-Spine: COMMON NORMALS: supple GENERAL: Yes trachea midline Resp: COMMON NORMALS: clear to auscultation bilaterally EFFORT & INSPECTION: Yes able to speak in complete sentences AUSCULTATION: clear to auscultation bilaterally Cardio: COMMON NORMALS: regular rate and regular rhythm RATE: regular rate RHYTHM: regular rhythm GI: COMMON NORMALS: Soft to palpation PALPATION: Yes Soft to palpation and No Tenderness to palpation present (GI) Extremity: GENERAL: Yes normal exam except as noted and No edema Neuro: COMMON NORMALS: moves all extremities SENSORIUM/ORIENTATION: Yes alert and No Orientation impaired Psych: COMMON NORMALS: mental status grossly normal and Normal thought process present THOUGHT PROCESS: Normal thought process present Course Vital Signs: Vital signs: Vital Signs Temperature 98.1 F 08/30/22 15:03 Pulse Rate 68 08/30/22 19:31 Respiratory Rate 16 08/30/22 19:31 Blood Pressure 174/96 08/30/22 19:31 Pulse Oximetry 96 08/30/22 19:31 Oxygen Delivery Me thod 08/30/22 15:03 MDM - Chest Pain Medical Decision Making 62-year-old lady with complex history presenting with intermittent chest pain for 1 week. Exam as above. EKG notable for sinus rhythm with normal axis and intervals, no STEMI. Labs with no significant hematologic or metabolic abnormalities to explain symptoms. Negative range 2-hour delta troponin. Chest x-ray with no lobar consolidation or pneumothorax. Mild cardiomegaly present. Most likely etiology of symptoms is unspecified chest pain. The results of ED evaluation were discussed with the patient including possible disposition options. I discussed risk stratification by heart score and estimated risk of major adverse cardiac events. The patient wishes to proceed with outpatient management. I discussed prescriptions and/or symptomatic cares (if applicable) including appropriate and responsible use, followup plan, and return precautions. The patient verbalized understanding and felt safe for discharge. Medical Records I reviewed the patient's medical records. Lab Data I reviewed the patient's lab results. 08/30/22 16:48 08/30/22 16:48 Radiology Impressions Chest X-Ray 08/30/22 15:07 IMPRESSION: Mild cardiomegaly otherwise negative chest. Laboratory Results WBC 4.7 10^3/uL (4.0-10.0) 08/30/22 16:48 RBC 4.10 10^6/uL (4.1-5.3) 08/30/22 16:48 Hgb 11.9 g/dL (11.5-15.3) 08/30/22 16:48 Hct 37.2 % (37.0-47.0) 08/30/22 16:48 MCV 90.7 fl (81-99) 08/30/22 16:48 MCH 29.0 pg (28.0-34.0) 08/30/22 16:48 MCHC 32.0 g/dL (30.0-36.0) 08/30/22 16:48 RDW 13.8 % (12.1-15.1) 08/30/22 16:48 Plt Count 182 10^3/cmm (130-400) 08/30/22 16:48 MPV 9.2 fL (7.4-10.4) 08/30/22 16:48 Neut % (Auto) 61.4 % 08/30/22 16:48 Lymph % (Auto) 28.1 % 08/30/22 16:48 [place] % (Auto) 8.0 % 08/30/22 16:48 Eos % (Auto) 1.7 % 08/30/22 16:48 Baso % (Auto) 0.4 % 08/30/22 16:48 Neut # (Auto) 2.91 10^3/uL (1.8-7.7) 08/30/22 16:48 Lymph # (Auto) 1.3 10^3/uL (0.8-4.8) 08/30/22 16:48 [place] # (Auto) 0.4 10^3/uL (0.2-0.9) 08/30/22 16:48 Eos # (Auto) 0.1 10^3/uL (0.0-0.8) 08/30/22 16:48 Baso # (Auto) 0.0 10^3/uL (0.0-0.1) 08/30/22 16:48 Nucleated RBC % (auto) 0 % 08/30/22 16:48 Nucleated RBCs # 0.0 /100WBC 08/30/22 16:48 Sodium 141 mmol/L (136-145) 08/30/22 16:48 Potassium 4.5 mmol/L (3.5-5.1) 08/30/22 16:48 Chloride 103 mmol/L (98-107) 08/30/22 16:48 Carbon Dioxide 25 mmol/L (22-29) 08/30/22 16:48 Anion Gap 17.5 (5-19) 08/30/22 16:48 BUN 19 mg/dL (8-23) 08/30/22 16:48 Creatinine 0.8 mg/dL (0.5-0.9) 08/30/22 16:48 GFR Calculation 72.2 mL/min (90-130) L 08/30/22 16:48 Glucose 144 mg/dL (65-115) H 08/30/22 16:48 Calculated Osmolality 297 mOsm/kg (285-295) H 08/30/22 16:48 Calcium 9.5 mg/dL (8.5-10.5) 08/30/22 16:48 Total Bilirubin 0.2 mg/dL (0.15-1.2) 08/30/22 16:48 AST 26 U/L (0-32) 08/30/22 16:48 ALT 24 U/L (0-33) 08/30/22 16:48 Alkaline Phosphatase 107 U/L (35-105) H 08/30/22 16:48 Troponin T Baseline 10 ng/L (0-10) 08/30/22 16:48 Troponin T 120 Minute 10.13 ng/L (0-10) H 08/30/22 18:45 Delta Troponin T 0.13 ABS# (0-10) 08/30/22 18:45 NT-Pro-B Natriuret Pep 229 pg/mL (0-125) H 08/30/22 16:48 Total Protein 7.1 g/dL (6.6-8.7) 08/30/22 16:48 Albumin 4.5 g/dL (3.5-5.2) 08/30/22 16:48 Globulin 2.6 g/dL (1.3-4.6) 08/30/22 16:48 Discharge Plan Discharge Patient Disposition: Home Clinical Impression: Chest pain Condition: Stable Prescriptions: No Action fluticasone propionate [Flonase Allergy Relief] 50 mcg/actuation spray,suspension 2 spray INTRANASAL DAILY Rx Instructions: administer into each nostril lisinopril 40 mg tablet 40 mg PO DAILY metformin 1,000 mg tablet 1,000 mg PO BID gabapentin 600 mg tablet 600 mg PO BID glimepiride 4 mg tablet 4 mg PO BID omeprazole 40 mg capsule,delayed release(DR/EC) 40 mg PO DAILY metoprolol succinate 25 mg tablet extended release 24 hr 25 mg PO DAILY niacin 500 mg tablet 500 mg PO DAILY amlodipine 2.5 mg tablet 2.5 mg PO DAILY 30 Days Qty: 30 5RF Januvia 100 mg tablet 100 mg PO DAILY letrozole 2.5 mg tablet See Rx Instructions .ROUTE .COMPLEX Qty: 30 5RF Dose Instruction: TAKE ONE TABLET BY MOUTH DAILY Rx Instructions: TAKE ONE TABLET BY MOUTH DAILY Discharge Orders: Discharge ED (Routine); Ordered 08/30/22 Ordered By: Adriel Syed Referrals: Ofelia Castro PA-C [Primary Care Provider] - Discharge Diet: Usual diet Discharge Activity: Increase activity as tolerated Patient Instructions: Chest Pain (ED) Activity Restrictions/Additional Instructions: Thank you for visiting the emergency department. You were seen and evaluated for chest pain. The exact cause of your symptoms is unclear. After discussion and ED evaluation we will plan to have outpatient further evaluation. I will message case management for further testing. Please follow-up with your primary care provider. Return to the emergency department for worsening symptoms or anything else that you are concerned about and feel needs emergency department evaluation. Coding Level of Care Code ED [employer] for Chao Amaya
[2022-08-30 17:07] VITALS: BP 170/114; PULSE 74; RESP 16; O2SAT 97
--- NOTE | 2022-08-30 17:07 | ECG_ITS ---
[facility] Test Date: 2022-08-30 Pat Name: Harleen Pierre Department: Room: Gender: Female Scheduling Representative: : 1960 Requested By: Mitchell Teran Order Number: [id number] Angela MD: Angel Obrien M.D. Measurements Intervals [place] Rate: 64 P: 55 CA: 158 QRS: 30 QRSD: 70 T: 46 QT: 356 QTc: 370 Interpretive Statements SINUS RHYTHM Compared to ECG 08/30/2022 14:58:42 No significant changes Electronically Signed On 08-30-2022 20:51:43 DIRECTOR [employer] by Angel Obrien M.D. [id number]
[2022-08-30 17:15] LABS: Basophils % 0.4 %; Eosinophils # 0.1 10^3/uL (0.0-0.8); Eosinophils % 1.7 %; Hematocrit 37.2 % (37.0-47.0); Hemoglobin 11.9 g/dL (11.5-15.3); Lymphocytes # 1.3 10^3/uL (0.8-4.8); Lymphocytes % 28.1 %; Mean Corpuscular Volume 90.7 fl (81-99); Mean Platelet Volume 9.2 fL (7.4-10.4); Monocytes # 0.4 10^3/uL (0.2-0.9); Neutrophils # 2.91 10^3/uL (1.8-7.7); Neutrophils % 61.4 %; Nucleated Red Blood Cells % 0 %; Platelet Count 182 10^3/cmm (130-400); Red Cell Distribution Width 13.8 % (12.1-15.1); White Blood Count 4.7 10^3/uL (4.0-10.0)
[2022-08-30] MEDS: aspirin 81 mg Chew Tablet 324 MG PO (17:35)
[2022-08-30] MEDS: alum-mag-hydroxide-sime 30 mL UDC PO (17:35)
[2022-08-30 17:41] LABS: Troponin(5th) Baseline 10 ng/L (0-10)
[2022-08-30 17:51] LABS: Alanine Aminotransferase 24 U/L (0-33); Albumin Level 4.5 g/dL (3.5-5.2); Alkaline Phosphatase 107 U/L (35-105); Anion Gap 17.5 (5-19); Aspartate Amino Transferase 26 U/L (0-32); Blood Urea Nitrogen 19 mg/dL (8-23); Calcium 9.5 mg/dL (8.5-10.5); Carbon Dioxide 25 mmol/L (22-29); Chloride 103 mmol/L (98-107); Globulin 2.6 g/dL (1.3-4.6); Glomerular Filtration Rate 72.2 mL/min (90-130); Glucose 144 mg/dL (65-115); NT Pro B Type Natriuretic Pept 229 pg/mL (0-125); Osmolality Calculated 297 mOsm/kg (285-295); Potassium 4.5 mmol/L (3.5-5.1); Sodium 141 mmol/L (136-145); Total Bilirubin 0.2 mg/dL (0.15-1.2); Total Protein 7.1 g/dL (6.6-8.7)
[2022-08-30 19:00] VITALS: BP 195/92; PULSE 63; RESP 17; O2SAT 95
[2022-08-30] MEDS: hyDRALAzine 25 mg Tablet PO (19:12)
[2022-08-30 19:22] LABS: Troponin 5 2HR 10.13 ng/L (0-10)
[2022-08-30 19:29] LABS: Troponin 5 2HR Delta 0.13 ABS# (0-10)
[2022-08-30 19:31] VITALS: BP 174/96; PULSE 68; RESP 16; O2SAT 96
--- NOTE | 2022-09-02 09:47 | DCPLANNER ---
customer pricing manager had message to schedule an out patient stress test for patient. customer pricing manager faxed signed order to centralized scheduling, who will call patient with appointment information.
== END 2022-08-30 20:22 | disposition home or self-care (01) ==
PROVIDERS: Emergency Medicine; Emergency Provider Emergency Medicine; PCP Physician Assistant
DX: R07.9 Chest pain, unspecified (principal); Z79.84 Long term (current) use of oral hypoglycemic drugs; Z85.3 Personal history of malignant neoplasm of breast; Z86.73 Personal history of transient ischemic attack (TIA), and cerebral infarction without residual deficits; E11.9 Type 2 diabetes mellitus without complications; I10 Essential (primary) hypertension; Z85.828 Personal history of other malignant neoplasm of skin
CPT/HCPCS: 36415; 71045; 80053; 83880; 84484; 85025; 93005; 99285

== ENCOUNTER → 2022-09-09 10:51 | Outpatient (BNVA) | payer MEDICARE, MEDICAID, SELFPAY | PROVIDERS: PCP Physician Assistant; Visit Provider Internal Medicine Cardiovascular Disease | DX: R07.89 Other chest pain (principal); I10 Essential (primary) hypertension; Z86.73 Personal history of transient ischemic attack (TIA), and cerebral infarction without residual deficits; E78.5 Hyperlipidemia, unspecified; E11.65 Type 2 diabetes mellitus with hyperglycemia; Z79.84 Long term (current) use of oral hypoglycemic drugs | CPT/HCPCS: 99214 ==

== ENCOUNTER 2022-10-15 10:09 | Oncology outpatient (recurring) (ONCR) | payer MEDICARE, MEDICAID, SELFPAY ==
[2022-10-15 10:34] LABS: Basophils % 0.3 %; Eosinophils # 0.1 10^3/uL (0.0-0.8); Hemoglobin 10.7 g/dL (11.5-15.3); Lymphocytes % 16.8 %; Mean Corpuscular HGB Conc 31.5 g/dL (30.0-36.0); Mean Corpuscular Hemoglobin 28.5 pg (28.0-34.0); Mean Corpuscular Volume 90.7 fl (81-99); Mean Platelet Volume 9.2 fL (7.4-10.4); Monocytes # 0.4 10^3/uL (0.2-0.9); Neutrophils # 4.53 10^3/uL (1.8-7.7); Neutrophils % 73.9 %; Nucleated Red Blood Cells % 0 %; Platelet Count 157 10^3/cmm (130-400); Red Blood Count 3.75 10^6/uL (4.1-5.3); Red Cell Distribution Width 13.9 % (12.1-15.1); White Blood Count 6.1 10^3/uL (4.0-10.0)
[2022-10-15 10:52] LABS: Alanine Aminotransferase 18 U/L (0-33); Albumin Level 4.1 g/dL (3.5-5.2); Alkaline Phosphatase 104 U/L (35-105); Anion Gap 17.2 (5-19); Aspartate Amino Transferase 23 U/L (0-32); Blood Urea Nitrogen 12 mg/dL (8-23); Calcium 8.6 mg/dL (8.5-10.5); Carbon Dioxide 25 mmol/L (22-29); Chloride 104 mmol/L (98-107); Globulin 2.4 g/dL (1.3-4.6); Glomerular Filtration Rate 72.2 mL/min (90-130); Glucose 231 mg/dL (65-115); Osmolality Calculated 301 mOsm/kg (285-295); Potassium 4.2 mmol/L (3.5-5.1); Sodium 142 mmol/L (136-145); Total Bilirubin 0.2 mg/dL (0.15-1.2); Total Protein 6.5 g/dL (6.6-8.7)
== END 2022-11-02 23:59 | disposition home or self-care (01) ==
LOC: ONCMED 10:09
PROVIDERS: PCP Physician Assistant; Visit Provider Nurse Practitioner
DX: C50.811 Malignant neoplasm of overlapping sites of right female breast (principal); Z17.0 Estrogen receptor positive status [ER+]; Z78.0 Asymptomatic menopausal state; Z79.811 Long term (current) use of aromatase inhibitors; Z79.899 Other long term (current) drug therapy; Z92.3 Personal history of irradiation
CPT/HCPCS: 36415; 80053; 85025; 99214

== ENCOUNTER 2022-10-20 11:25 | Outpatient (CLI) | payer MEDICARE, MEDICAID, SELFPAY ==
--- NOTE | 2022-10-20 12:10 | MM_ITS ---
WS: [id number] Bilateral diagnostic 3D tomosynthesis digital mammogram, 10/20/2022 Clinical Data: HXCA Comparison: 10/03/2021, 09/11/2020, 02/16/2020, 02/16/2019, 01/10/2019, 12/31/2017, 11/07/2014, 11/03/2013. Findings: There are postoperative changes with surgical clips in the upper outer quadrant of the right breast. No evidence of recurrent carcinoma is seen. There is thickening of the right breast from treatment of right breast cancer. The breast parenchymal pattern shows fibroglandular tissue. The left breast is unremarkable. The breasts show no spiculated masses nor clustered calcifications. There are benign va scular calcifications in the left breast. MM/[id number] Impression: 1. Posttreatment changes in the upper outer quadrant of the right breast. 2. Negative left breast. 3. Recommend annual mammograms BIRADS: 2-Benign FOLLOW UP: 1 Year Follow-up The CAD machine stoppage frequency checker was used.
== END 2022-10-20 11:26 | disposition home or self-care (01) ==
LOC: RAD 11:30
PROVIDERS: PCP Physician Assistant; Visit Provider Internal Medicine Hematology & Oncology
DX: Z85.3 Personal history of malignant neoplasm of breast (principal)
CPT/HCPCS: 77062; G0279

== ENCOUNTER → 2022-12-15 08:51 | Outpatient (BNVA) | payer MEDICARE, MEDICAID, SELFPAY | PROVIDERS: PCP Physician Assistant; Visit Provider Nurse Practitioner Family | DX: R55 Syncope and collapse (principal); I10 Essential (primary) hypertension; Z86.73 Personal history of transient ischemic attack (TIA), and cerebral infarction without residual deficits | CPT/HCPCS: 99213 ==

== ENCOUNTER 2023-03-02 14:16 | Emergency (ER) | payer MEDICARE, MEDICAID, SELFPAY ==
--- NOTE | 2023-03-02 14:29 | ECG_ITS ---
[facility] Test Date: 2023-03-02 Pat Name: Harleen Pierre Department: Room: Gender: Female Edger Runner: : 1960 Requested By: Thom Clarke Order Number: [id number] Angela MD: Angel Obrien M.D. Measurements Intervals [place] Rate: 63 P: 9 NV: 167 QRS: 42 QRSD: 82 T: 35 QT: 370 QTc: 381 Interpretive Statements SINUS RHYTHM Compared to ECG 08/30/2022 17:18:33 No significant changes Electronically Signed On 03-02-2023 20:24:00 CDT by Angel Obrien M.D. [id number]
[2023-03-02 14:43] VITALS: BP 162/71; PULSE 66; RESP 16; TEMP 36.7; O2SAT 95; BMI 29.9
[2023-03-02 17:39] LABS: Basophils % 0.3 %; Eosinophils # 0.1 10^3/uL (0.0-0.8); Eosinophils % 0.8 %; Hematocrit 38.7 % (36-47); Lymphocytes # 1.3 10^3/uL (0.8-4.8); Lymphocytes % 17.9 %; Mean Corpuscular HGB Conc 31.8 g/dL (30-55); Mean Corpuscular Volume 91.3 fl (85-98); Mean Platelet Volume 9.4 fL (7.4-10.4); Monocytes # 0.4 10^3/uL (0.2-0.9); Monocytes % 5.9 %; Neutrophils # 5.45 10^3/uL (1.8-7.7); Neutrophils % 74.6 %; Nucleated Red Blood Cells % 0 %; Platelet Count 212 10^3/cmm (157-399); Red Blood Count 4.24 10^6/uL (3.85-5.65); Red Cell Distribution Width 13.5 % (12.1-15.1); White Blood Count 7.31 10^3/uL (3.29-11.43)
[2023-03-02 17:46] LABS: INR 0.91 (0.8-1.2); Partial Thromboplastin Time 26.3 SECONDS (23.9-36.7)
[2023-03-02 17:55] LABS: Troponin(5th) Baseline 9 ng/L (0-10)
[2023-03-02 18:04] LABS: Alanine Aminotransferase 17 U/L (0-33); Albumin Level 4.7 g/dL (3.5-5.2); Alkaline Phosphatase 96 U/L (35-105); Anion Gap 20.5 (5-19); Aspartate Amino Transferase 18 U/L (0-32); Blood Urea Nitrogen 13 mg/dL (8-23); Calcium 9.5 mg/dL (8.5-10.5); Carbon Dioxide 25 mmol/L (22-29); Chloride 101 mmol/L (98-107); Creatine Phosphokinase 68 U/L (26-192); Globulin 2.4 g/dL (1.3-4.6); Glucose 115 mg/dL (65-115); Lipase 45 U/L (13-60); NT Pro B Type Natriuretic Pept 174 pg/mL (0-125); Osmolality Calculated 295 mOsm/kg (285-295); Potassium 4.5 mmol/L (3.5-5.1); Sodium 142 mmol/L (136-145); Total Bilirubin 0.2 mg/dL (0.15-1.2); Total Protein 7.1 g/dL (6.6-8.7)
--- NOTE | 2023-03-02 19:18 | ED_ITS ---
HPI - Chest Pain General: Chief Complaint: Chest Pain Stated Complaint: chest pain, back pain Time Seen by Provider: 03/02/23 19:16 History of Present Illness: 63-year-old female comes in today for complaints of mid back pain. Patient reports that sometimes it goes around to her chest. Patient appears nontoxic. Patient reports some fluctuations in her blood pressure. Patient reports pain is worse in the morning until she gets up and moves around. Patient reports a history of arthritis. Patient states the pain has been going on for about 2 weeks. Patient does admit to doing some increase in lifting over the past 2 weeks. Review of Systems General: Reports: 10 or more systems reviewed and unremarkable except in HPI and below Card: Reports: chest pain Musc: Reports: back pain PFSH ED PFSH: Medical History Anxiety Arthritis Asthma Atypical chest pain Breast cancer CVA (cerebral vascular accident) Diabetes Hypertension Skin cancer TIA (transient ischemic attack) Surgical History H/O dilation and curettage Hx of breast surgery Family History Other CAD (coronary artery disease) CHF (congestive heart failure) Cancer Diabetes Hypertension Lung disease Stroke Denies family history of Clotting disorder Dementia Chronic kidney disease (CKD) Suicide Anesthesia complication Bleeding disorder Social History Smoking and tobacco status: never smoked Alcohol intake: never Substance/Drug Use: never Physical Exam Const: COMMON NORMALS: alert HENMT: COMMON NORMALS: normocephalic HEAD & SCALP: normocephalic Neck/C-Spine: COMMON NORMALS: full ROM Chest: CHEST: Yes tenderness (Right posterior and right anterior chest wall) Resp: COMMON NORMALS: normal respiratory effort and clear to auscultation bilaterally AUSCULTATION: clear to auscultation bilaterally Cardio: COMMON NORMALS: regular rate and regular rhythm RATE: regular rate RHYTHM: regular rhythm GI: COMMON NORMALS: Soft to palpation and non-tender PALPATION: Yes Soft to palpation : COMMON NORMALS: Yes no CVA tenderness BLADDER/KIDNEY EXAM: Yes no CVA tenderness Back/Pelvis: COMMON NORMALS: no CVA tenderness Extremity: COMMON NORMALS: normal to inspection, full ROM and no pedal edema Neuro: SENSORIUM/ORIENTATION: Yes alert Skin: COMMON NORMALS: turgor normal GENERAL SKIN EXAM: turgor normal Course Vital Signs: Vital signs: Vital Signs Temperature 98.1 F 03/02/23 14:43 Pulse Rate 66 03/02/23 14:43 Respiratory Rate 16 03/02/23 14:43 Blood Pressure 162/71 03/02/23 14:43 Pulse Oximetry 95 03/02/23 14:43 Oxygen Delivery Me thod Room Air 03/02/23 14:43 MDM - Chest Pain Medical Decision Making 63-year-old female comes in today with mid back pain for the last 2 weeks. Patient denies any falls or injuries but does endorse some increased lifting. On exam patient has tenderness on palpation of the right posterior and right anterior chest wall. Lungs are clear to auscultation. Skin is warm and dry. Vital signs are normal. EKG shows a sinus rhythm. Differential diagnosis includes but not limited to ACS, costochondritis, thoracic back pain, gallbladder disease, pneumonia. CBC and CMP were unremarkable. Troponin was normal. EKG showed a sinus rhythm without any ectopy or ST elevation. X-ray of the thoracic spine due to degenerative changes but without any signs of acute injury. Believe patient probably has some mid back pain or costochondritis. Recommended continuing with Tylenol and following up with primary care for further evaluation and treatment. Patient was stable and was released to home with recommendations for follow-up or return to the ER for worsening symptoms. Lab Data 03/02/23 17:02 03/02/23 17:02 Radiology Impressions Thoracic Spine X-Ray 03/02/23 19:22 IMPRESSION: No acute findings. Laboratory Results WBC 7.31 10^3/uL (3.29-11.43) 03/02/23 17:02 RBC 4.24 10^6/uL (3.85-5.65) 03/02/23 17:02 Hgb 12.30 g/dL (11.27-16.99) 03/02/23 17:02 Hct 38.7 % (36-47) 03/02/23 17:02 MCV 91.3 fl (85-98) 03/02/23 17:02 MCH 29.0 pg (27-33) 03/02/23 17:02 MCHC 31.8 g/dL (30-55) 03/02/23 17:02 RDW 13.5 % (12.1-15.1) 03/02/23 17:02 Plt Count 212 10^3/cmm (157-399) 03/02/23 17:02 MPV 9.4 fL (7.4-10.4) 03/02/23 17:02 Neut % (Auto) 74.6 % 03/02/23 17:02 Lymph % (Auto) 17.9 % 03/02/23 17:02 [place] % (Auto) 5.9 % 03/02/23 17:02 Eos % (Auto) 0.8 % 03/02/23 17:02 Baso % (Auto) 0.3 % 03/02/23 17:02 Neut # (Auto) 5.45 10^3/uL (1.8-7.7) 03/02/23 17:02 Lymph # (Auto) 1.3 10^3/uL (0.8-4.8) 03/02/23 17:02 [place] # (Auto) 0.4 10^3/uL (0.2-0.9) 03/02/23 17:02 Eos # (Auto) 0.1 10^3/uL (0.0-0.8) 03/02/23 17:02 Baso # (Auto) 0.0 10^3/uL (0.0-0.1) 03/02/23 17:02 Nucleated RBC % (auto) 0 % 03/02/23 17:02 Nucleated RBCs # 0.0 /100WBC 03/02/23 17:02 PT 12.50 SECONDS (12.1-14.9) 03/02/23 17:02 INR 0.91 (0.8-1.2) 03/02/23 17:02 APTT 26.3 SECONDS (23.9-36.7) 03/02/23 17:02 Sodium 142 mmol/L (136-145) 03/02/23 17:02 Potassium 4.5 mmol/L (3.5-5.1) 03/02/23 17:02 Chloride 101 mmol/L (98-107) 03/02/23 17:02 Carbon Dioxide 25 mmol/L (22-29) 03/02/23 17:02 Anion Gap 20.5 (5-19) H 03/02/23 17:02 BUN 13 mg/dL (8-23) 03/02/23 17:02 Creatinine 0.8 mg/dL (0.5-0.9) 03/02/23 17:02 GFR Calculation 72.0 mL/min (90-130) L 03/02/23 17:02 Glucose 115 mg/dL (65-115) 03/02/23 17:02 Calculated Osmolality 295 mOsm/kg (285-295) 03/02/23 17:02 Calcium 9.5 mg/dL (8.5-10.5) 03/02/23 17:02 Total Bilirubin 0.2 mg/dL (0.15-1.2) 03/02/23 17:02 AST 18 U/L (0-32) 03/02/23 17:02 ALT 17 U/L (0-33) 03/02/23 17:02 Alkaline Phosphatase 96 U/L (35-105) 03/02/23 17:02 Creatine Kinase 68 U/L (26-192) 03/02/23 17:02 Troponin T Baseline 9 ng/L (0-10) 03/02/23 17:02 NT-Pro-B Natriuret Pep 174 pg/mL (0-125) H 03/02/23 17:02 Total Protein 7.1 g/dL (6.6-8.7) 03/02/23 17:02 Albumin 4.7 g/dL (3.5-5.2) 03/02/23 17:02 Globulin 2.4 g/dL (1.3-4.6) 03/02/23 17:02 Lipase 45 U/L (13-60) 03/02/23 17:02 Discharge Plan Discharge Patient Disposition: Home Clinical Impression: Costalchondritis Condition: Stable Prescriptions: No Action fluticasone propionate [Flonase Allergy Relief] 50 mcg/actuation spray,suspension 2 spray INTRANASAL DAILY Rx Instructions: administer into each nostril lisinopril 40 mg tablet 40 mg PO DAILY metformin 1,000 mg tablet 1,000 mg PO BID gabapentin 600 mg tablet 600 mg PO BID glimepiride 4 mg tablet 4 mg PO BID metoprolol succinate 25 mg tablet extended release 24 hr 25 mg PO DAILY niacin 500 mg tablet 500 mg PO DAILY amlodipine 2.5 mg tablet 2.5 mg PO DAILY 30 Days Qty: 30 5RF Hold Instructions: hypotension pantoprazole 40 mg tablet,delayed release (DR/EC) 40 mg PO DAILY Januvia 100 mg tablet 100 mg PO DAILY letrozole 2.5 mg tablet See Rx Instructions .ROUTE .COMPLEX Qty: 30 5RF Dose Instruction: TAKE ONE TABLET BY MOUTH DAILY Rx Instructions: TAKE ONE TABLET BY MOUTH DAILY Discharge Orders: Discharge ED (Routine); Ordered 03/02/23 Ordered By: Naun Mcneill Referrals: Ofelia Castro PA-C [Primary Care Provider] - Discharge Diet: Usual diet Discharge Activity: Increase activity as tolerated Patient Instructions: Back Pain (ED) Activity Restrictions/Additional Instructions: Activity as tolerated. Continue with acetaminophen as needed for pain. Follow- up with primary care in 2 to 3 days for recheck. Follow-up with your marketing assistant at next scheduled appointment. Return to ED for new concerns or worsening symptoms such as severe shortness of breath, high fever, or severe chest pain. Coding Level of Care Code ED Certified Low Vision Therapist for Chao Amaya
--- NOTE | 2023-03-02 19:22 | XRR_ITS ---
PROCEDURE INFORMATION: Exam: XR Thoracic Spine Exam date and time: 03/02/2023 7:28 PM Age: 63 years old Clinical indication: Pain in thoracic spine; Without myelpathy or radiculopathy; Additional info: Upper mid back pain TECHNIQUE: Imaging protocol: Radiologic exam of the thoracic spine. Views: 3 views. COMPARISON: CR XR chest 1V portable [id number] 08/30/2022 4:21 PM FINDINGS: Bones/joints: No acute fracture. Normal alignment. Mild multilevel degenerative changes throughout the thoracic spine. Soft tissues: Unremarkable. XR/XR thoracic spine 3V* [id number] IMPRESSION: No acute findings.
== END 2023-03-02 20:34 | disposition home or self-care (01) ==
PROVIDERS: Family Medicine; Emergency Provider Nurse Practitioner Family; PCP Physician Assistant
DX: M94.0 Chondrocostal junction syndrome [Tietze] (principal); Z79.84 Long term (current) use of oral hypoglycemic drugs; Z85.3 Personal history of malignant neoplasm of breast; Z86.73 Personal history of transient ischemic attack (TIA), and cerebral infarction without residual deficits; E11.9 Type 2 diabetes mellitus without complications; I10 Essential (primary) hypertension
CPT/HCPCS: 36415; 72072; 80053; 82550; 83690; 83880; 84484; 85025; 85610; 85730; 93005; 99285

== ENCOUNTER 2023-03-11 12:51 | Outpatient (CLI) | payer MEDICARE, MEDICAID, SELFPAY ==
--- NOTE | 2023-03-11 12:45 | MR_ITS ---
WS: [id number] MRA ANGIOGRAPHY [place] HISTORY: I67.1 - Cerebral aneurysm, nonruptured COMPARISON: 04/24/2022 MR angiogram [place]. TECHNIQUE: 3-D MR angiography is performed of the [place]. All images are reviewed including source images. Distal vertebral and basilar arteries are intact with no significant stenosis or plaque. Posterior ce rebral arteries are normal course and caliber. Posterior communicating arteries are both patent. RIGH T posterior communicating artery is hypoplastic. Very mild atherosclerosis of the intracranial carotid arteries. No high-grade stenosis or progression . Mild narrowing of the carotid arteries through the cavernous sinuses. Previously described aneurysm at the RIGHT M1 trifurcation is reidentified measuring approximately 3.1 mm. No increase in size. No new aneurysm. Negative LEFT middle cerebral artery. No occlusions. Normal A1 and A2 segments. No ant erior communicating artery aneurysm. IMPRESSION: 1. 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 2. No new or enlarging aneurysms. 3. Mild atherosclerotic disease within the intracranial carotid arteries. No high-grade stenosis.
== END 2023-03-11 12:52 | disposition home or self-care (01) ==
PROVIDERS: PCP Physician Assistant; Visit Provider Specialist
DX: I67.1 Cerebral aneurysm, nonruptured (principal); I67.2 Cerebral atherosclerosis
CPT/HCPCS: 70544

== ENCOUNTER → 2023-03-18 09:50 | Outpatient (BNVA) | payer MEDICARE, MEDICAID, SELFPAY | PROVIDERS: PCP Physician Assistant; Visit Provider Internal Medicine Cardiovascular Disease | DX: R07.89 Other chest pain (principal); R06.02 Shortness of breath; I67.1 Cerebral aneurysm, nonruptured; E78.5 Hyperlipidemia, unspecified; I10 Essential (primary) hypertension; G61.0 Guillain-Barre syndrome; E11.65 Type 2 diabetes mellitus with hyperglycemia; Z79.84 Long term (current) use of oral hypoglycemic drugs | CPT/HCPCS: 36415; 80048; 83880; 99214 ==

== ENCOUNTER → 2023-04-01 14:03 | Outpatient (BNVA) | payer MEDICARE, MEDICAID, SELFPAY | PROVIDERS: PCP Physician Assistant; Visit Provider Podiatrist Foot & Ankle Surgery | DX: S93.622A Sprain of tarsometatarsal ligament of left foot, initial encounter; W19.XXXA Unspecified fall, initial encounter | CPT/HCPCS: 73630 ==

== ENCOUNTER 2023-04-01 16:07 | Outpatient (CLI) | payer MEDICARE, MEDICAID, SELFPAY | END 2023-04-01 16:08 | disposition home or self-care (01) | LOC: SPT 04-02 09:07 | PROVIDERS: PCP Physician Assistant; Visit Provider Podiatrist Foot & Ankle Surgery | DX: Z46.89 Encounter for fitting and adjustment of other specified devices (principal); S92.902D Unspecified fracture of left foot, subsequent encounter for fracture with routine healing; X58.XXXD Exposure to other specified factors, subsequent encounter | CPT/HCPCS: 99203; L4361 ==

== ENCOUNTER 2023-05-04 09:56 | Outpatient (CLI) | payer MEDICARE, MEDICAID, SELFPAY ==
--- NOTE | 2023-05-04 09:30 | CT_ITS ---
WS: [id number] CT LEFT FOOT, contrast, 3D HISTORY: fracture of left foot Technique: All CT scans at [facility] use at least one of these dose optimization techniques: automated exposure control; mA and/or kV adjustment per patient size (includes targeted exams where dose is matched to clinical indication); or iterative reconstruction. DLP: 135.20 mGy.cm COMPARISON: Foot radiograph 04/01/2023 and 03/23/2023 Normal distal tibia and fibula. Normal talus. No osteochondral injury. Normal calcaneus. The anterior calcaneal process is normal. Tarsals and metatarsals are intact. No fractures or healing fracture. N ormal tarsal metatarsal alignment. No widening of the Lisfranc joint. There is a very small well-circ umscribed osteophyte or calcification along the dorsal surface of the foot at the proximal metatarsal level. There is a very small amount of fluid in the posterior joint recess. No focal collections or signific ant edema surrounding the foot. Mild hallux valgus deformity. IMPRESSION: 1. No acute or healing LEFT foot fractures. 2. No osteochondral lesion. 3. No widening of the Lisfranc joint.
== END 2023-05-04 09:57 | disposition home or self-care (01) ==
PROVIDERS: PCP Physician Assistant; Visit Provider Podiatrist Foot & Ankle Surgery
DX: S92.902A Unspecified fracture of left foot, initial encounter for closed fracture (principal); X58.XXXA Exposure to other specified factors, initial encounter
CPT/HCPCS: 73700

== ENCOUNTER 2023-05-12 11:05 | Oncology outpatient (recurring) (ONCR) | payer MEDICARE, MEDICAID, SELFPAY ==
[2023-05-12 11:12] VITALS: BP 146/68; PULSE 63; RESP 16; TEMP 36.4; O2SAT 95
[2023-05-12 11:26] LABS: Basophils % 0.3 %; Eosinophils # 0.1 10^3/uL (0.0-0.8); Eosinophils % 0.7 %; Hematocrit 34.6 % (36-47); Lymphocytes # 1.3 10^3/uL (0.8-4.8); Lymphocytes % 19.1 %; Mean Corpuscular HGB Conc 31.8 g/dL (30-55); Mean Corpuscular Hemoglobin 28.1 pg (27-33); Mean Corpuscular Volume 88.3 fl (85-98); Mean Platelet Volume 9.1 fL (7.4-10.4); Monocytes # 0.4 10^3/uL (0.2-0.9); Monocytes % 5.8 %; Neutrophils # 5.04 10^3/uL (1.8-7.7); Neutrophils % 73.7 %; Nucleated Red Blood Cells % 0 %; Platelet Count 192 10^3/cmm (157-399); Red Blood Count 3.92 10^6/uL (3.85-5.65); Red Cell Distribution Width 13.8 % (12.1-15.1); White Blood Count 6.85 10^3/uL (3.29-11.43)
[2023-05-12 11:46] LABS: Alanine Aminotransferase 18 U/L (0-33); Albumin Level 4.3 g/dL (3.5-5.2); Alkaline Phosphatase 91 U/L (35-105); Anion Gap 16.7 (5-19); Aspartate Amino Transferase 21 U/L (0-32); Blood Urea Nitrogen 14 mg/dL (8-23); Calcium 9.7 mg/dL (8.5-10.5); Carbon Dioxide 25 mmol/L (22-29); Chloride 106 mmol/L (98-107); Globulin 2.4 g/dL (1.3-4.6); Glomerular Filtration Rate 62.8 mL/min (90-130); Glucose 138 mg/dL (65-115); Osmolality Calculated 299 mOsm/kg (285-295); Potassium 4.7 mmol/L (3.5-5.1); Sodium 143 mmol/L (136-145); Total Bilirubin 0.3 mg/dL (0.15-1.2); Total Protein 6.7 g/dL (6.6-8.7)
== END 2023-06-04 23:59 | disposition home or self-care (01) ==
PROVIDERS: Nurse Practitioner Family; PCP Physician Assistant; Visit Provider Internal Medicine Medical Oncology
DX: C50.919 Malignant neoplasm of unspecified site of unspecified female breast (principal); Z79.899 Other long term (current) drug therapy
CPT/HCPCS: 36415; 80053; 85025; 99213; 99214

== ENCOUNTER 2023-06-24 07:25 | Outpatient (CLI) | payer MEDICARE, MEDICAID, SELFPAY ==
[2023-06-24 07:46] VITALS: BMI 29.1
--- NOTE | 2023-06-24 07:49 | ECG_ITS ---
[facility] Test Date: 2023-06-24 Pat Name: Harleen Pierre Department: Room: Gender: Female Post Doctoral Fellow: : 1960 Requested By: Paul Stacy Order Number: [id number] Angela MD: Paul Stacy M.D. Interpretive Statements NAME OF STUDY: LEXISCAN SESTAMIBI STRESS TEST INDICATION: Chest Pain PROCEDURE: At the baseline, the EKG revealed sinus bradycardia with a rate of [address] Ts. The baseline heart was 58 bpm with a blood pressue of 149/98 mm of Hg Lexiscan was infused over a period of 20 seconds. A total of 0.4 milligrams of Lexiscan was infused. The stress phase was continued for a total of 5 minutes. Heart rate at the end of the stress phase was 69 bpm with a blood pressure 163/84 mm of Hg. The EKG at the peak infusion revealed no significant changes. Sestamibi was injected 20 seconds after the Lexiscan infusion. Heart rate at the end of the recovery phase was 69 bpm with a blood pressure of 151/72 mm of Hg. CONCLUSION: 1. No significant EKG changes with the LexiScan infusion 2. No LexiScan induced chest pain or cardiac arrhythmia 3. Normal blood pressure and heart rate response 4. Sestamibi/sestamibi perfusion scan pending; see separate report. Electronically Signed On 07-06-2023 17:05:51 MANAGER [employer]EIGN by Paul Stacy M.D. [id number]
--- NOTE | 2023-06-24 07:50 | NMCV_ITS ---
NM jarred perf SPECT r/s* [id number] [facility] Age: 63 Gender: F : 1960 Exam Date: 06/24/2023 08:14 Ordering Phys: Paul Stacy MD ([email or web address]) Technologist: LILY Bello Exam Location: [facility] [place] Indications: CHEST PAIN STRESS TEST Please see separate stress test report in [facility] for full findings IMAGE PROTOCOL Rest/Stress 1 Lexiscan Day Radiopharmaceutical Dose (mCi) Administration Site Administered by Rest: Tc-99m 10.6 IV LILY Cueva Sestamibi Stress:Tc-99m 32.4 IV LILY Cueva Sestamibi Rest: 24-Jun-2023 60 Discovery 630 Stress: 24-Jun-2023 30 Discovery 630 0.4mg Lexiscan. Images obtained in supine and prone position. SPECT RESULTS Technical Quality: Excellent Raw Data Analysis: Normal Image Corrections: No attenuation or motion correction applied Summed Stress Score: 0 Summed Rest Score: 1 Summed Difference Score: 0 PERFUSION FINDINGS Fairly uniform myocardial tracer uptake with no significant perfusion abnormalities. FUNCTIONAL RESULTS (calculated via Gated SPECT) Stress Image LV EF (%): 59 Stress EDV (mL):125 TID: 1.11 Stress ESV (mL):51 FUNCTIONAL FINDINGS: Segmental wall motion analysis revealing no gross wall motion abnormalities IMPRESSIONS 1. Myocardial perfusion imaging revealing uniform myocardial tracer uptake with no significant perfusion abnormalities 2. Normal LV ejection fraction of 59%. 3. LV wall motion analysis revealing no gross wall motion abnormalities. 4. LV volume, upper limit of normal Low probability for coronary ischemia, based on the above findings Dr Paul Stacy MD FACC (Electronically Signed) Final Date: 25 June 2023 00:08 S
[2023-06-24] MEDS: regadenoson 0.4 Mg/5 ml Syringe IVP (09:15)
[2023-06-24 09:34] VITALS: BP 158/62; PULSE 62
== END 2023-06-24 07:26 | disposition home or self-care (01) ==
PROVIDERS: PCP Physician Assistant; Visit Provider Internal Medicine Cardiovascular Disease
DX: R07.9 Chest pain, unspecified (principal)
CPT/HCPCS: 36415; 78452; 93017; 96374; A9500; J2785

== ENCOUNTER 2023-08-14 19:49 | Emergency (ER) | payer MEDICARE, MEDICAID, SELFPAY ==
[2023-08-14 19:55] VITALS: BP 183/83; PULSE 64; RESP 16; TEMP 36.9; O2SAT 96
--- NOTE | 2023-08-14 19:59 | ECG_ITS ---
[facility] Test Date: 2023-08-14 Pat Name: Harleen Pierre Department: Room: Gender: Female [employer] [address] Man: : 1960 Requested By: Camilla Clarke Order Number: [id number] Angela MD: Angel Obrien M.D. Measurements Intervals [place] Rate: 58 P: 62 CO: 176 QRS: 54 QRSD: 78 T: 69 QT: 402 QTc: 397 Interpretive Statements SINUS BRADYCARDIA Compared to ECG 03/02/2023 14:40:26 Sinus rhythm no longer present Electronically Signed On 08-15-2023 5:54:41 [employer] by Angel Obrien M.D. [email or web address]
--- NOTE | 2023-08-14 19:59 | XRR_ITS ---
PROCEDURE INFORMATION: Exam: XR Chest Exam date and time: 08/14/2023 8:16 PM Age: 63 years old Clinical indication: Chest wall pain; Additional info: Chest pain TECHNIQUE: Imaging protocol: Radiologic exam of the chest. Views: 1 view. COMPARISON: CR XR chest 1V portable [id number] 08/30/2022 4:21 PM FINDINGS: Lungs: Lungs are clear bilaterally. Pleural spaces: No pleural effusion. No pneumothorax. Heart/Mediastinum: Stable mild enlargement of the cardiac silhouette. Mediastinal contours are unremarkable. Vasculature: Stable vascular calcifications in the aorta. Bones/joints: Unremarkable for age. Soft tissues: Surgical clips in the right chest wall are stable. XR/XR chest 1V [id number] IMPRESSION: 1. No acute cardiopulmonary process. 2. Incidental/nonacute findings are listed in the report.
--- NOTE | 2023-08-14 20:01 | ED_ITS ---
HPI - Chest Pain 2 General: Chief Complaint: Chest Pain Stated Complaint: CP Time Seen by Provider: 08/14/23 19:56 History of Present Illness: 63-year-old female with a history of hyp ertension and diabetes who presents the emergency room with chest pain. Said pain started about an hour ago. She called EMS. EMS said she was hypertensive and gave her some nitro. The nitro helped her pain. She is currently chest pain-free. She has no known coronary history. No cough. No lower extremity swelling. No nausea or vomiting. Review of Systems 2 Narrative: Constitutional symptoms: Negative except as documented in HPI. Skin symptoms: Negative except as documented in HPI. Eye symptoms: Negative except as documented in HPI. ENMT symptoms: Negative except as documented in HPI. Respiratory symptoms: Negative except as documented in HPI. Cardiovascular symptoms: Negative except as documented in HPI. Gastrointestinal symptoms: Negative except as documented in HPI. Genitourinary symptoms: Negative except as documented in HPI. Musculoskeletal symptoms: Negative except as documented in HPI. Neurologic symptoms: Negative except as documented in HPI. Psychiatric symptoms: Negative except as documented in HPI. Endocrine symptoms: Negative except as documented in HPI. PFSH ED 2 PFSH: Medical History Anxiety Arthritis Asthma Atypical chest pain Breast cancer CVA (cerebral vascular accident) Diabetes Hypertension Skin cancer TIA (transient ischemic attack) Surgical History H/O dilation and curettage Hx of breast surgery Family History Other CAD (coronary artery disease) CHF (congestive heart failure) Cancer Diabetes Hypertension Lung disease Stroke Denies family history of Clotting disorder Dementia Chronic kidney disease (CKD) Suicide Anesthesia complication Bleeding disorder Social History Smoking and tobacco/nicotine status: never used tobacco/nicotine Alcohol intake: never Substance/Drug Use: never Physical Exam 2 Narrative: EXAM NARRATIVE: General: Alert, no acute distress. Skin: Warm, dry. Head: Normocephalic, atraumatic. Neck: Supple, trachea midline. Eye: Extraocular movements are intact. Ears, nose, mouth and throat: mucosa moist. Cardiovascular: Regular, Normal peripheral perfusion. Respiratory: Lungs are clear to auscultation, respirations are non-labored, breath sounds are equal, Symmetrical chest wall expansion. Gastrointestinal: Soft, Nontender, Non distended, Normal bowel sounds. Musculoskeletal: Normal ROM, no deformity. Neurological: Alert and oriented to person, place, time, and situation, No focal neurological deficit observed. Psychiatric: Cooperative, appropriate mood & affect. Course 2 Vital Signs: Vital signs: Vital Signs Temperature 98.5 F 08/14/23 19:55 Pulse Rate 63 08/14/23 20:17 Respiratory Rate 14 08/14/23 20:17 Blood Pressure 183/83 08/14/23 20:17 Pulse Oximetry 96 08/14/23 20:17 Oxygen Delivery Me thod Room Air 08/14/23 20:17 MDM - Chest Pain Medical Decision Making Chest pain relieved with nitroglycerin. EKG, chest x-ray basic lab work and troponins were ordered EKG: N time 2036 PM rate 58 sinus bradycardia, No ST-T changes, no ectopy, normal MS & QRS intervals, This was reviewed and interpreted by myself the ER physician. Chest x-ray: No acute process. No pneumothorax. No infiltrate. No cardiomegaly. This was reviewed and interpreted by myself the ER physician. Serial cardiac markers are negative. Lab work is negative. Clear chest x-ray. Lab Data 08/14/23 20:30 08/14/23 20:30 Radiology Impressions Chest X-Ray 08/14/23 19:59 IMPRESSION: 1. No acute cardiopulmonary process. 2. Incidental/nonacute findings are listed in the report. Laboratory Results WBC 5.52 10^3/uL (3.29-11.43) 08/14/23 20:30 RBC 3.74 10^6/uL (3.85-5.65) L 08/14/23 20:30 Hgb 10.80 g/dL (11.27-16.99) L 08/14/23 20:30 Hct 32.9 % (36-47) L 08/14/23 20:30 MCV 88.0 fl (85-98) 08/14/23 20:30 MCH 28.9 pg (27-33) 08/14/23 20:30 MCHC 32.8 g/dL (30-55) 08/14/23 20:30 RDW 13.2 % (12.1-15.1) 08/14/23 20:30 Plt Count 179 10^3/cmm (157-399) 08/14/23 20:30 MPV 8.8 fL (7.4-10.4) 08/14/23 20:30 Neut % (Auto) 64.1 % 08/14/23 20:30 Lymph % (Auto) 25.7 % 08/14/23 20:30 Gonzales % (Auto) 8.0 % 08/14/23 20:30 Eos % (Auto) 1.3 % 08/14/23 20:30 Baso % (Auto) 0.4 % 08/14/23 20: Neut # (Auto) 3.54 10^3/uL (1.8-7.7) 08/14/23 20: Lymph # (Auto) 1.4 10^3/uL (0.8-4.8) 08/14/23 20:30 Gonzales # (Auto) 0.4 10^3/uL (0.2-0.9) 08/14/23 20:30 Eos # (Auto) 0.1 10^3/uL (0.0-0.8) 08/14/23 20: Baso # (Auto) 0.0 10^3/uL (0.0-0.1) 08/14/23 20: Nucleated RBC % (auto) 0 % 08/14/23 20: Nucleated RBCs # 0.0 /100WBC 08/14/23 20:30 Sodium 140 mmol/L (136-145) 08/14/23 20:30 Potassium 4.2 mmol/L (3.5-5.1) 08/14/23 20:30 Chloride 103 mmol/L (98-107) 08/14/23 20:30 Carbon Dioxide 25 mmol/L (22-29) 08/14/23 20:30 Anion Gap 16.2 (5-19) 08/14/23 20:30 BUN 17 mg/dL (8-23) 08/14/23 20:30 Creatinine 0.9 mg/dL (0.5-0.9) 08/14/23 20: GFR Calculation 62.8 mL/min (90-130) L 08/14/23 20:30 Glucose 221 mg/dL (65-115) H 08/14/23 20:30 Calculated Osmolality 298 mOsm/kg (285-295) H 08/14/23 20:30 Calcium 8.8 mg/dL (8.5-10.5) 08/14/23 20:30 Total Bilirubin 0.2 mg/dL (0.15-1.2) 08/14/23 20:30 AST 16 U/L (0-32) 08/14/23 20:30 ALT 14 U/L (0-33) 08/14/23 20:30 Alkaline Phosphatase 104 U/L (35-105) 08/14/23 20:30 Troponin T Baseline 15 ng/L (0-10) H 08/14/23 20:30 Total Protein 6.5 g/dL (6.6-8.7) L 08/14/23 20:30 Albumin 4.0 g/dL (3.5-5.2) 08/14/23 20:30 Globulin 2.5 g/dL (1.3-4.6) 08/14/23 20:30 XR interpretation done by ED provider, pending radiology final review Other Data - Discharged home - Discussed findings and plan with patient. Answered any questions. - All laboratory values were reviewed and interpreted personally by myself, the ER physician - All imaging was reviewed and interpreted personally by myself, the ER physician. - Evaluation and treatment of this problem were appropriate in the emergency setting Discharge Plan Discharge Patient Disposition: Home Condition: Stable Prescriptions: No Action fluticasone propionate [Flonase Allergy Relief] 50 mcg/actuation spray,suspension 2 spray INTRANASAL DAILY Rx Instructions: administer into each nostril lisinopril 40 mg tablet 40 mg PO DAILY metformin 1,000 mg tablet 1,000 mg PO BID gabapentin 600 mg tablet 600 mg PO BID glimepiride 4 mg tablet 4 mg PO BID metoprolol succinate 25 mg tablet extended release 24 hr 25 mg PO DAILY niacin 500 mg tablet 500 mg PO DAILY amlodipine 2.5 mg tablet 2.5 mg PO DAILY 30 Days Qty: 30 5RF Hold Instructions: hypotension pantoprazole 40 mg tablet,delayed release (DR/EC) 40 mg PO DAILY Januvia 100 mg tablet 100 mg PO DAILY (DME) CAM boot 10 See Rx Instructions .Route .MEDSUPPLY Qty: 1 0RF Rx Instructions: WEIGHT BEARING letrozole 2.5 mg tablet See Rx Instructions .ROUTE .COMPLEX Qty: 30 5RF Dose Instruction: TAKE ONE TABLET BY MOUTH DAILY Rx Instructions: TAKE ONE TABLET BY MOUTH DAILY Discharge Orders: Discharge ED (Routine); Ordered 08/14/23 Ordered By: Camilla Ann Referrals: Ofelia Castro PA-C [Primary Care Provider] - (You have been screened and evaluated and felt safe for discharge. Health conditions do change or evolve sometimes and as such it is important that you follow up with your Primary Doctor to be re checked, 3-5 days is a general good time frame for follow up. You are always welcome to return to the ED for re assessment if your symptoms are worsening or you have new concerns) Patient Instructions: Opioid Safety, Pain Management, Noncardiac Chest Pain (ED) Coding Level of Care Code ED [employer] for [employer]
[2023-08-14 20:17] VITALS: BP 183/83; PULSE 63; RESP 14; O2SAT 96
[2023-08-14 20:39] LABS: Basophils % 0.4 %; Eosinophils # 0.1 10^3/uL (0.0-0.8); Eosinophils % 1.3 %; Hematocrit 32.9 % (36-47); Lymphocytes # 1.4 10^3/uL (0.8-4.8); Lymphocytes % 25.7 %; Mean Corpuscular HGB Conc 32.8 g/dL (30-55); Mean Corpuscular Hemoglobin 28.9 pg (27-33); Mean Platelet Volume 8.8 fL (7.4-10.4); Monocytes # 0.4 10^3/uL (0.2-0.9); Neutrophils # 3.54 10^3/uL (1.8-7.7); Neutrophils % 64.1 %; Nucleated Red Blood Cells % 0 %; Platelet Count 179 10^3/cmm (157-399); Red Blood Count 3.74 10^6/uL (3.85-5.65); Red Cell Distribution Width 13.2 % (12.1-15.1); White Blood Count 5.52 10^3/uL (3.29-11.43)
[2023-08-14 20:57] LABS: Troponin(5th) Baseline 15 ng/L (0-10)
[2023-08-14 21:01] LABS: Alanine Aminotransferase 14 U/L (0-33); Alkaline Phosphatase 104 U/L (35-105); Anion Gap 16.2 (5-19); Aspartate Amino Transferase 16 U/L (0-32); Blood Urea Nitrogen 17 mg/dL (8-23); Calcium 8.8 mg/dL (8.5-10.5); Carbon Dioxide 25 mmol/L (22-29); Chloride 103 mmol/L (98-107); Globulin 2.5 g/dL (1.3-4.6); Glomerular Filtration Rate 62.8 mL/min (90-130); Glucose 221 mg/dL (65-115); Osmolality Calculated 298 mOsm/kg (285-295); Potassium 4.2 mmol/L (3.5-5.1); Sodium 140 mmol/L (136-145); Total Bilirubin 0.2 mg/dL (0.15-1.2); Total Protein 6.5 g/dL (6.6-8.7)
[2023-08-14 21:49] VITALS: BP 183/83; PULSE 68; O2SAT 99
== END 2023-08-14 21:50 | disposition home or self-care (01) ==
PROVIDERS: Emergency Provider Emergency Medicine; PCP Physician Assistant
DX: R07.9 Chest pain, unspecified (principal); Z79.84 Long term (current) use of oral hypoglycemic drugs; Z85.3 Personal history of malignant neoplasm of breast; Z86.73 Personal history of transient ischemic attack (TIA), and cerebral infarction without residual deficits; E11.9 Type 2 diabetes mellitus without complications; I10 Essential (primary) hypertension
CPT/HCPCS: 36415; 71045; 80053; 84484; 85025; 93005; 99285

== ENCOUNTER → 2023-10-01 10:09 | Outpatient (BNVA) | payer MEDICARE, MEDICAID, SELFPAY | PROVIDERS: PCP Physician Assistant; Visit Provider Internal Medicine Cardiovascular Disease | DX: R07.9 Chest pain, unspecified (principal); I10 Essential (primary) hypertension; E78.5 Hyperlipidemia, unspecified; E11.65 Type 2 diabetes mellitus with hyperglycemia; I67.1 Cerebral aneurysm, nonruptured; Z79.84 Long term (current) use of oral hypoglycemic drugs | CPT/HCPCS: 99214 ==

== ENCOUNTER 2023-11-10 09:57 | Outpatient (CLI) | payer MEDICARE, MEDICAID, SELFPAY ==
--- NOTE | 2023-11-10 10:07 | US_ITS ---
WS: [id number] RENAL ULTRASOUND HISTORY: STAGE 3 MODERATE CKD COMPARISON: None available. TECHNIQUE: 2-D and color Doppler imaging of the kidney submitted. Right kidney: 9.7 cm x 4.9 cm x 5.2 cm. Cortex: 1.3 cm Normal echogenicity with no hydronephrosis or mass. Left kidney: 8.9 cm x 3.6 cm x 4.8 cm. Cortex: 1.5 cm Low normal size kidney. No hydronephrosis or cortical thinning. There is an exophytic cyst from the m id kidney measuring 1.7 x 1.9 cm. Aorta: Normal. Urinary Bladder: Normal distention. Seen only on a single image is a hyperechoic focus in the gallbladder which may represent a gallstone or polyp. US/US renal BI* [id number] IMPRESSION: 1. Low normal size LEFT kidney with a small exophytic cyst, maximal diameter 1 .9 cm. 2. No hydronephrosis. 3. No cortical thinning.
--- NOTE | 2023-11-10 10:30 | MM_ITS ---
WS: [id number] DIAGNOSTIC BILATERAL DIGITAL BREAST TOMOSYNTHESIS MAMMOGRAPHY WITH CAD HISTORY: breast cancer COMPARISON: 10/20/2022, 10/03/2021, 09/11/2020 TECHNIQUE: Bilateral craniocaudad, mediolateral oblique, and mediolateral views are submitted with to mosynthesis and SM. Computer aided detection utilized. Breast composition: There are scattered areas of fibroglandular density. Volume loss and postoperativ e changes in the RIGHT breast. Surgical sutures and lumpectomy in the upper outer quadrant. No suspic ious masses or calcifications within either breast. Vascular calcifications predominantly within the LEFT breast. MM/[place] [id number] IMPRESSION: BI-RADS: 2-Benign FOLLOW UP: 1 Year Follow-up
== END 2023-11-10 09:58 | disposition home or self-care (01) ==
LOC: RAD 09:57
PROVIDERS: PCP Physician Assistant; Visit Provider Nurse Practitioner Family
DX: C50.911 Malignant neoplasm of unspecified site of right female breast (principal); R92.323 Mammographic fibroglandular density, bilateral breasts; N18.30 Chronic kidney disease, stage 3 unspecified; N28.1 Cyst of kidney, acquired
CPT/HCPCS: 76770; 77062; G0279

== ENCOUNTER 2023-11-17 11:35 | Oncology outpatient (recurring) (ONCR) | payer MEDICARE, MEDICAID, SELFPAY ==
[2023-11-17 12:10] LABS: Basophils % 0.3 %; Eosinophils # 0.1 10^3/uL (0.0-0.8); Eosinophils % 1.3 %; Hematocrit 36.4 % (36-47); Lymphocytes # 1.4 10^3/uL (0.8-4.8); Mean Corpuscular HGB Conc 32.1 g/dL (30-55); Mean Corpuscular Hemoglobin 28.7 pg (27-33); Mean Corpuscular Volume 89.4 fl (85-98); Monocytes # 0.4 10^3/uL (0.2-0.9); Monocytes % 6.5 %; Neutrophils # 4.06 10^3/uL (1.8-7.7); Neutrophils % 68.2 %; Nucleated Red Blood Cells % 0 %; Platelet Count 186 10^3/cmm (157-399); Red Blood Count 4.07 10^6/uL (3.85-5.65); Red Cell Distribution Width 13.6 % (12.1-15.1); White Blood Count 5.96 10^3/uL (3.29-11.43)
[2023-11-17 12:26] LABS: Alanine Aminotransferase 9 U/L (0-33); Albumin Level 4.1 g/dL (3.5-5.2); Alkaline Phosphatase 103 U/L (35-105); Anion Gap 15.5 (5-19); Aspartate Amino Transferase 12 U/L (0-32); Blood Urea Nitrogen 23 mg/dL (8-23); Calcium 9.7 mg/dL (8.5-10.5); Carbon Dioxide 27 mmol/L (22-29); Chloride 101 mmol/L (98-107); Glomerular Filtration Rate 55.6 mL/min (90-130); Glucose 257 mg/dL (65-115); Osmolality Calculated 300 mOsm/kg (285-295); Potassium 4.5 mmol/L (3.5-5.1); Sodium 139 mmol/L (136-145); Total Bilirubin 0.2 mg/dL (0.15-1.2); Total Protein 7.1 g/dL (6.6-8.7)
== END 2023-12-04 23:59 | disposition home or self-care (01) ==
PROVIDERS: Nurse Practitioner Family; PCP Physician Assistant; Visit Provider Internal Medicine Medical Oncology
DX: Z17.0 Estrogen receptor positive status [ER+]; Z79.899 Other long term (current) drug therapy; Z78.0 Asymptomatic menopausal state; Z79.811 Long term (current) use of aromatase inhibitors; I12.9 Hypertensive chronic kidney disease with stage 1 through stage 4 chronic kidney disease, or unspecified chronic kidney disease; C50.811 Malignant neoplasm of overlapping sites of right female breast; N18.30 Chronic kidney disease, stage 3 unspecified
CPT/HCPCS: 36415; 80053; 85025; 99214

== ENCOUNTER → 2023-12-30 08:28 | Outpatient (BNVA) | payer MEDICARE, MEDICAID, SELFPAY | PROVIDERS: PCP Nurse Practitioner Family; Visit Provider Nurse Practitioner Family | DX: L57.0 Actinic keratosis (principal); L70.0 Acne vulgaris; L72.0 Epidermal cyst; D23.61 Other benign neoplasm of skin of right upper limb, including shoulder; L82.1 Other seborrheic keratosis | CPT/HCPCS: 17000; 99213 ==

== ENCOUNTER 2024-01-04 12:22 | Outpatient (CLI) | payer MEDICARE, MEDICAID, SELFPAY ==
--- NOTE | 2024-01-04 13:00 | XR_ITS ---
WS: [email or web address] DEXA (DUAL ENERGY X-RAY ABSORPTIOMETRY) Bone mineral density was performed using a iLost machine. HISTORY: aromatase inhibitor use for breast cancer COMPARISON: None available. Lumbar spine BMD (L1-L4): 1.614 g/cm2 T score: 3.6 Z score: 4.7 Total hip BMD: Left: 1.178 g/cm2. T score: 1.4 Z score: 2.2 Right: 1.218 g/cm2. T score: 1.7 Z score: 2.5 10 year probability of a major osteoporotic fracture is 13.5%. XR/XR DEXA axial skeleton* [id number] IMPRESSION: NORMAL BONE MINERAL DENSITY based upon the WHO classification for females.
== END 2024-01-04 12:23 | disposition home or self-care (01) ==
LOC: RAD 12:22
PROVIDERS: PCP Nurse Practitioner Family; Visit Provider Nurse Practitioner Family
DX: Z78.0 Asymptomatic menopausal state (principal); Z79.811 Long term (current) use of aromatase inhibitors
CPT/HCPCS: 77080

== ENCOUNTER 2024-05-20 07:10 | Oncology outpatient (recurring) (ONCR) | payer MEDICARE, MEDICAID, SELFPAY ==
[2024-05-20 07:40] LABS: Basophils % 0.8 %; Eosinophils # 0.1 10^3/uL (0.0-0.8); Eosinophils % 1.8 %; Lymphocytes # 1.3 10^3/uL (0.8-4.8); Lymphocytes % 32.1 %; Mean Corpuscular HGB Conc 31.1 g/dL (30-55); Mean Corpuscular Hemoglobin 27.4 pg (27-33); Mean Corpuscular Volume 88.2 fl (85-98); Mean Platelet Volume 8.8 fL (7.4-10.4); Monocytes # 0.4 10^3/uL (0.2-0.9); Monocytes % 9.3 %; Neutrophils % 55.5 %; Nucleated Red Blood Cells % 0 %; Platelet Count 205 10^3/cmm (157-399); Red Blood Count 4.31 10^6/uL (3.85-5.65); Red Cell Distribution Width 13.3 % (12.1-15.1); White Blood Count 3.96 10^3/uL (3.29-11.43)
[2024-05-20 07:58] LABS: Alanine Aminotransferase 13 U/L (0-33); Albumin Level 4.2 g/dL (3.5-5.2); Alkaline Phosphatase 81 U/L (35-105); Anion Gap 13.7 (5-19); Aspartate Amino Transferase 19 U/L (0-32); Blood Urea Nitrogen 21 mg/dL (8-23); Calcium 8.8 mg/dL (8.5-10.5); Carbon Dioxide 26 mmol/L (22-29); Chloride 102 mmol/L (98-107); Globulin 2.6 g/dL (1.3-4.6); Glomerular Filtration Rate 44.9 mL/min (90-130); Glucose 202 mg/dL (65-115); Osmolality Calculated 293 mOsm/kg (285-295); Potassium 4.7 mmol/L (3.5-5.1); Sodium 137 mmol/L (136-145); Total Bilirubin 0.2 mg/dL (0.15-1.2); Total Protein 6.8 g/dL (6.6-8.7)
== END 2024-06-04 23:59 | disposition home or self-care (01) ==
PROVIDERS: Nurse Practitioner Family; PCP Nurse Practitioner Family; Visit Provider Internal Medicine Hematology & Oncology
DX: C50.811 Malignant neoplasm of overlapping sites of right female breast (principal); Z17.0 Estrogen receptor positive status [ER+]; Z79.899 Other long term (current) drug therapy; Z78.0 Asymptomatic menopausal state; Z79.811 Long term (current) use of aromatase inhibitors; I12.9 Hypertensive chronic kidney disease with stage 1 through stage 4 chronic kidney disease, or unspecified chronic kidney disease; N18.30 Chronic kidney disease, stage 3 unspecified
CPT/HCPCS: 17000; 36415; 80053; 85025; 99213; 99214

== ENCOUNTER 2024-06-07 08:39 | Outpatient (CLI) | payer MEDICARE, MEDICAID, SELFPAY ==
--- NOTE | 2024-06-07 09:00 | MM_ITS ---
WS: [email or web address] ADDITIONAL VIEWS RIGHT MAMMOGRAM WITH DIGITAL BREAST TOMOSYNTHESIS. RIGHT BREAST ULTRASOUND HISTORY: new right breast pain COMPARISON: 11/10/2023, 10/20/2022, 09/11/2020 RIGHT MAMMOGRAM: Spot compression views and true ML with digital breast tomosynthesis and SM. Breast composition: There are scattered areas of fibroglandular density. Postsurgical changes are noted in the upper outer quadrant. There are surgical clips remaining. There is distortion of the breast which is stable. There is no recurrent mass. Ultrasound will be performe d in the areas of pain described by the patient. RIGHT BREAST ULTRASOUND 2-D and color Doppler imaging submitted. Ultrasound of the RIGHT breast is directed to the areas of pain as indicated by the patient which inc ludes 4:00 through 7:00 and 10:00. Axilla is also imaged. No abnormalities are noted within any of th e imaged areas. MM/MM diag RT tomosynthesis [id number] IMPRESSION: BI-RADS: 2 - Benign. FOLLOW UP: 1 Year Follow-up
--- NOTE | 2024-06-07 09:16 | US_ITS ---
WS: [email or web address] ADDITIONAL VIEWS RIGHT MAMMOGRAM WITH DIGITAL BREAST TOMOSYNTHESIS. RIGHT BREAST ULTRASOUND HISTORY: new right breast pain COMPARISON: 11/10/2023, 10/20/2022, 09/11/2020 RIGHT MAMMOGRAM: Spot compression views and true ML with digital breast tomosynthesis and SM. Breast composition: There are scattered areas of fibroglandular density. Postsurgical changes are noted in the upper outer quadrant. There are surgical clips remaining. There is distortion of the breast which is stable. There is no recurrent mass. Ultrasound will be performe d in the areas of pain described by the patient. RIGHT BREAST ULTRASOUND 2-D and color Doppler imaging submitted. Ultrasound of the RIGHT breast is directed to the areas of pain as indicated by the patient which inc ludes 4:00 through 7:00 and 10:00. Axilla is also imaged. No abnormalities are noted within any of th e imaged areas. US/US breast RT limited* [id number] IMPRESSION: BI-RADS: 2 - Benign. FOLLOW UP: 1 Year Follow-up
== END 2024-06-07 08:40 | disposition home or self-care (01) ==
LOC: RAD 08:39
PROVIDERS: PCP Nurse Practitioner Family; Visit Provider Nurse Practitioner Family
DX: C50.411 Malignant neoplasm of upper-outer quadrant of right female breast (principal); R92.323 Mammographic fibroglandular density, bilateral breasts; Z98.890 Other specified postprocedural states
CPT/HCPCS: 76642; 77061; G0279

== ENCOUNTER → 2024-09-26 11:08 | Outpatient (BNVA) | payer MEDICARE, MEDICAID, SELFPAY | PROVIDERS: PCP Nurse Practitioner Family; Visit Provider Internal Medicine Cardiovascular Disease | DX: R07.9 Chest pain, unspecified (principal); R93.1 Abnormal findings on diagnostic imaging of heart and coronary circulation; I10 Essential (primary) hypertension; E11.65 Type 2 diabetes mellitus with hyperglycemia; I67.1 Cerebral aneurysm, nonruptured; Z79.84 Long term (current) use of oral hypoglycemic drugs | CPT/HCPCS: 93005; 99214 ==

== ENCOUNTER 2024-11-16 09:19 | Oncology outpatient (recurring) (ONCR) | payer MEDICARE, SELFPAY ==
[2024-11-16 10:09] LABS: Basophils % 0.8 %; Eosinophils # 0.1 10^3/uL (0.0-0.8); Eosinophils % 1.3 %; Hematocrit 33.7 % (36-47); Lymphocytes # 1.1 10^3/uL (0.8-4.8); Lymphocytes % 24.2 %; Mean Corpuscular HGB Conc 32.6 g/dL (30-55); Mean Corpuscular Hemoglobin 28.6 pg (27-33); Mean Corpuscular Volume 87.8 fl (85-98); Mean Platelet Volume 9.1 fL (7.4-10.4); Monocytes # 0.3 10^3/uL (0.2-0.9); Monocytes % 7.2 %; Neutrophils % 65.9 %; Nucleated Red Blood Cells % 0 %; Platelet Count 200 10^3/cmm (157-399); Red Blood Count 3.84 10^6/uL (3.85-5.65); Red Cell Distribution Width 13.2 % (12.1-15.1); White Blood Count 4.71 10^3/uL (3.29-11.43)
[2024-11-16 10:25] LABS: Alanine Aminotransferase 11 U/L (0-33); Albumin Level 3.9 g/dL (3.5-5.2); Alkaline Phosphatase 115 U/L (35-105); Anion Gap 17.2 (5-19); Aspartate Amino Transferase 13 U/L (0-32); Blood Urea Nitrogen 19 mg/dL (8-23); Calcium 8.9 mg/dL (8.5-10.5); Carbon Dioxide 24 mmol/L (22-29); Chloride 103 mmol/L (98-107); Globulin 2.7 g/dL (1.3-4.6); Glomerular Filtration Rate 62.6 mL/min (90-130); Glucose 288 mg/dL (65-115); Osmolality Calculated 303 mOsm/kg (285-295); Potassium 4.2 mmol/L (3.5-5.1); Sodium 140 mmol/L (136-145); Total Bilirubin 0.2 mg/dL (0.15-1.2); Total Protein 6.6 g/dL (6.6-8.7)
== END 2024-12-03 23:59 | disposition home or self-care (01) ==
PROVIDERS: Nurse Practitioner Family; PCP Nurse Practitioner Family; Visit Provider Internal Medicine Medical Oncology
DX: C50.811 Malignant neoplasm of overlapping sites of right female breast (principal); Z17.0 Estrogen receptor positive status [ER+]; Z79.899 Other long term (current) drug therapy; Z78.0 Asymptomatic menopausal state; Z79.811 Long term (current) use of aromatase inhibitors; I12.9 Hypertensive chronic kidney disease with stage 1 through stage 4 chronic kidney disease, or unspecified chronic kidney disease; N18.30 Chronic kidney disease, stage 3 unspecified
CPT/HCPCS: 36415; 80053; 85025; 99214